=== PATIENT | female | born 1965 | race Caucasian/White ===

== ENCOUNTER 2020-07-13 13:32 | Outpatient (REF) | payer OTHER, SELFPAY ==
[2020-07-13 16:59] LABS: Estimated Average Glucose 283 mg/dL; Hemoglobin A1c % 11.5 %
[2020-07-13 17:09] LABS: Anion Gap 14 (12-20); Blood Urea Nitrogen 16 mg/dL (9-16); Calcium 9.4 mg/dL (8.4-10.2); Carbon Dioxide 30 mmol/L (22-29); Chloride 98 mmol/L (96-108); Estimated Glomerular Filt Rate 54; Glucose Random 256 mg/dL (60-115); Potassium 4.5 mmol/l (3.3-5.1); Sodium 137 mmol/L (135-145)
[2020-07-13 17:24] LABS: Creatinine Urine 33.06 mg/dL; Microalbum/Creatinine Ratio Ur 15.1 ug/mg cr
[2020-07-14 21:08] LABS: LDL Cholesterol Direct 145 mg/dL (<100)
== END 2020-07-13 13:33 | disposition home or self-care (01) ==
LOC: HO.HMGCLDS 13:32
PROVIDERS: PCP Internal Medicine; Visit Provider Internal Medicine
DX: E78.9 Disorder of lipoprotein metabolism, unspecified (principal); I10 Essential (primary) hypertension; K21.9 Gastro-esophageal reflux disease without esophagitis; E11.65 Type 2 diabetes mellitus with hyperglycemia; Z79.4 Long term (current) use of insulin
CPT/HCPCS: 80048; 82043; 83036; 83721

== ENCOUNTER → 2020-12-09 12:57 | Outpatient (BNVA) | payer OTHER, SELFPAY | PROVIDERS: PCP Internal Medicine; Visit Provider Nurse Practitioner Gerontology | DX: E11.65 Type 2 diabetes mellitus with hyperglycemia (principal); E78.5 Hyperlipidemia, unspecified; I10 Essential (primary) hypertension; Z79.4 Long term (current) use of insulin; Z71.3 Dietary counseling and surveillance | CPT/HCPCS: 82947; 99212 ==

== ENCOUNTER → 2021-04-07 07:39 | Outpatient (BNVA) | payer OTHER, SELFPAY | PROVIDERS: PCP Internal Medicine; Visit Provider Nurse Practitioner Gerontology ==

== ENCOUNTER → 2021-06-28 09:59 | Outpatient (BNVA) | payer OTHER, SELFPAY | PROVIDERS: PCP Internal Medicine; Visit Provider Nurse Practitioner Gerontology | DX: E11.65 Type 2 diabetes mellitus with hyperglycemia (principal); I10 Essential (primary) hypertension; E78.5 Hyperlipidemia, unspecified | CPT/HCPCS: 82947; 99212 ==

== ENCOUNTER → 2021-08-15 10:38 | Outpatient (BNVA) | payer OTHER, SELFPAY | PROVIDERS: PCP Internal Medicine; Visit Provider Nurse Practitioner Gerontology ==

== ENCOUNTER → 2021-10-10 12:35 | Outpatient (BNVA) | payer OTHER, SELFPAY | PROVIDERS: PCP Internal Medicine; Visit Provider Nurse Practitioner Gerontology ==

== ENCOUNTER → 2022-01-03 13:31 | Outpatient (BNVA) | payer OTHER, SELFPAY | PROVIDERS: PCP Internal Medicine; Visit Provider Nurse Practitioner Gerontology | DX: E11.65 Type 2 diabetes mellitus with hyperglycemia (principal); I10 Essential (primary) hypertension; E78.5 Hyperlipidemia, unspecified; E55.9 Vitamin D deficiency, unspecified; Z79.4 Long term (current) use of insulin | CPT/HCPCS: 82947; 83036; 99212 ==

== ENCOUNTER → 2022-01-18 15:22 | Outpatient (BNVA) | payer OTHER, SELFPAY | PROVIDERS: PCP Internal Medicine; Visit Provider Registered Nurse Diabetes Educator | DX: E11.65 Type 2 diabetes mellitus with hyperglycemia (principal) | CPT/HCPCS: 99211 ==

== ENCOUNTER 2022-05-12 09:13 | Outpatient (REF) | payer OTHER, SELFPAY ==
--- NOTE | ~2022-05-12 | XR_ITS ---
EXAMINATION: XR LUMBOSACRAL SPINE CLINICAL INFORMATION: Low back pain COMPARISON: 11/02/2017 TECHNIQUE: Three views of the lumbosacral spine. FINDINGS: There is minimal grade 1 retrolisthesis of L3 on L4. Alignment throughout the remainder of the lumbar spine is anatomic. Vertebral body heights are maintained. There is moderate to severe disc space narrowing at L3-L4 with surrounding degenerative endplate change. Mild scattered endplate osteophytes noted throughout the lumbar spine. Facet arthropathy is suspected in the lower lumbar spine. Calcifications are present along the aorta. XR/XR lumbar spine 2-3V IMPRESSION: No acute findings identified. Degenerative changes, most prominent at L3-L4.
[2022-05-12 11:48] LABS: MANUAL DIFF FLAG NO
[2022-05-12 12:01] LABS: Basophils Absolute Auto 0.1 X10*3/uL (0.0-0.2); Basophils Percent Auto 0.5 % (0-2); Eosinophils Absolute Auto 0.1 X10*3/uL (0.0-0.4); Eosinophils Percent Auto 0.9 % (0-4); Hematocrit 38.6 % (37.0-47.0); Hemoglobin 11.8 g/dl (12.0-16.0); Imm Gran Abs Auto 0.12 X10*3/uL (0.00-0.03); Imm Gran Pct Auto 1.1 % (0.0-0.4); Lymphocytes Absolute Auto 2.3 X10*3/uL (1.2-4.9); Lymphocytes Percent Auto 20.8 % (20-40); Mean Corpuscular HGB Conc 30.6 g/dl (31.0-35.0); Mean Corpuscular Hemoglobin 25.5 pg (27.0-33.0); Mean Corpuscular Volume 83.5 fL (80.0-98.0); Mean Platelet Volume 9.5 fL (9.4-12.3); Monocytes Absolute Auto 0.7 X10*3/uL (0.1-1.2); Monocytes Percent Auto 6.3 % (2-11); Neutrophils Absolute Auto 7.8 x10*3/uL (2.0-8.3); Neutrophils Percent Auto 70.4 % (45-73); Platelet Count 398 X10*3/uL (160-400); Red Blood Count 4.62 X10*6/uL (4.20-5.50); Red Cell Distribution Width 13.9 % (11.0-16.0); White Blood Count 11.1 X10*3/uL (4.8-10.8)
[2022-05-12 12:09] LABS: Estimated Average Glucose 183 mg/dL
[2022-05-12 12:37] LABS: Creatinine Urine 56.25 mg/dL; Microalbumin Urine < 5.0 mg/L
[2022-05-12 12:43] LABS: Alanine Aminotransferase 19 U/L (0-31); Albumin Level 4.3 g/dL (3.5-5.0); Alkaline Phosphatase 130 U/L (39-117); Anion Gap 24 (12-20); Aspartate Amino Transferase 21 U/L (5-31); Bilirubin Total 0.3 mg/dL (0.0-1.0); Blood Urea Nitrogen 44 mg/dL (9-16); Calcium 10.1 mg/dL (8.4-10.2); Carbon Dioxide 22 mmol/L (22-29); Chloride 96 mmol/L (96-108); Estimated Glomerular Filt Rate 29; Glucose Random 225 mg/dL (60-115); Potassium 5.1 mmol/L (3.3-5.1); Sodium 137 mmol/L (135-145)
[2022-05-14 21:07] LABS: LDL Cholesterol Direct 154 mg/dL (<100)
[2022-05-17 11:27] LABS: Vitamin D 25-OH, D2 6 ng/mL; Vitamin D 25-OH, D3 31 ng/mL; Vitamin D 25-OH, Total 37 ng/mL (30-100)
== END 2022-05-12 09:14 | disposition home or self-care (01) ==
LOC: HO.HMGCLDS 09:13
PROVIDERS: PCP Internal Medicine; Visit Provider Internal Medicine
DX: M54.50 Low back pain, unspecified (principal); E11.65 Type 2 diabetes mellitus with hyperglycemia; E55.9 Vitamin D deficiency, unspecified; E78.9 Disorder of lipoprotein metabolism, unspecified; I10 Essential (primary) hypertension; K21.9 Gastro-esophageal reflux disease without esophagitis; Z79.4 Long term (current) use of insulin
CPT/HCPCS: 36415; 72100; 80053; 82043; 82306; 83036; 83721; 85025

== ENCOUNTER → 2022-06-15 14:05 | Outpatient (BNVA) | payer OTHER, SELFPAY | PROVIDERS: PCP Internal Medicine; Visit Provider Internal Medicine Endocrinology, Diabetes & Metabolism | DX: E11.65 Type 2 diabetes mellitus with hyperglycemia (principal); Z79.4 Long term (current) use of insulin; Z79.84 Long term (current) use of oral hypoglycemic drugs | CPT/HCPCS: 82947; 99212 ==

== ENCOUNTER 2022-09-13 07:43 | Outpatient (REF) | payer OTHER, SELFPAY ==
[2022-09-13 08:27] LABS: Anion Gap 18 (12-20); Blood Urea Nitrogen 52 mg/dL (9-16); Carbon Dioxide 28 mmol/L (22-29); Chloride 99 mmol/L (96-108); Cholesterol 309 mg/dL; Estimated Glomerular Filt Rate 23; Glucose Random 204 mg/dL (60-115); HDL Cholesterol 38 mg/dL; Potassium 4.1 mmol/L (3.3-5.1); Sodium 141 mmol/L (135-145); Triglycerides 484 mg/dL
== END 2022-09-13 07:44 | disposition home or self-care (01) ==
LOC: HO.LAB 07:43
PROVIDERS: PCP Internal Medicine; Visit Provider Internal Medicine Endocrinology, Diabetes & Metabolism
DX: E11.65 Type 2 diabetes mellitus with hyperglycemia (principal)
CPT/HCPCS: 36415; 80048; 80061

== ENCOUNTER → 2022-09-14 13:19 | Outpatient (BNVA) | payer OTHER, SELFPAY | PROVIDERS: PCP Internal Medicine; Visit Provider Internal Medicine Endocrinology, Diabetes & Metabolism | DX: E11.65 Type 2 diabetes mellitus with hyperglycemia (principal); I10 Essential (primary) hypertension; E78.5 Hyperlipidemia, unspecified; F11.20 Opioid dependence, uncomplicated; Z79.4 Long term (current) use of insulin | CPT/HCPCS: 82947; 83036; 99212 ==

== ENCOUNTER → 2022-11-16 14:53 | Outpatient (BNVA) | payer OTHER, SELFPAY | PROVIDERS: PCP Internal Medicine; Visit Provider Internal Medicine Endocrinology, Diabetes & Metabolism | DX: E11.65 Type 2 diabetes mellitus with hyperglycemia (principal) | CPT/HCPCS: 82947; 99212 ==

== ENCOUNTER 2022-12-04 10:16 | Outpatient (REF) | payer OTHER, SELFPAY ==
[2022-12-04 12:36] LABS: Thyroid Stimulating Hormone 4.64 uIU/mL (0.32-4.0)
== END 2022-12-04 10:17 | disposition home or self-care (01) ==
LOC: HO.HMGCLDS 10:16
PROVIDERS: PCP Internal Medicine; Visit Provider Internal Medicine Endocrinology, Diabetes & Metabolism
DX: E11.65 Type 2 diabetes mellitus with hyperglycemia (principal)
CPT/HCPCS: 36415; 84439; 84443

== ENCOUNTER 2022-12-15 10:22 | Outpatient (REF) | payer OTHER, SELFPAY ==
[2022-12-15 12:25] LABS: Free T4 (Free Thyroxine) 0.87 ng/dL (0.71-1.85); Thyroid Stimulating Hormone 5.04 uIU/mL (0.32-4.0)
[2022-12-19 05:14] LABS: Thyroid Peroxidase Antibodies 679 IU/mL (<9)
== END 2022-12-15 10:23 | disposition home or self-care (01) ==
LOC: HO.HMGCLDS 10:22
PROVIDERS: PCP Internal Medicine; Visit Provider Internal Medicine Endocrinology, Diabetes & Metabolism
DX: R79.89 Other specified abnormal findings of blood chemistry (principal)
CPT/HCPCS: 36415; 84439; 84443; 86376

== ENCOUNTER 2023-04-03 13:33 | Outpatient (AMB) | payer OTHER, SELFPAY ==
[2023-04-03 13:46] VITALS: BMI 35.8
--- NOTE | 2023-04-03 13:46 | A.OFFVIS_ITS ---
Intake VS Expanded 04/03/23 13:46 04/17/23 20:08 Height 5 ft 4 in 5 ft 4 in Weight 208 lb 5.389 oz 208 lb BMI 35.8 35.7 Intake Visit Reasons: DM Allergies No Known Allergies [No Known Allergies*] Allergy (Verified 04/04/23 14:19) HPI Nutrition Presentation Details Pt presents for MNT for T2DM. Pt sees Dr. Clark, farm technician. Pt reports having hx of SVT, methadone dependence who prepares meals: self , daughter . Pt reports living with daughter and grandchildren Brought glucometer : BG average at 201 mg/dl, 33% within limits, 50% above 180 mg/dl, 17% above 240 mg/dl Pt on lispro on SS, Tresiba ,Trulicity Pt has appt with Dr. Clark, farm technician tomorrow Pt reports eating one meal a day meal at 2-3pm : protein (chicken mainly) rice , vegetables (peas , green beans corn), unsweetened tea snack : milk, cereal food frequency fish : not including, poultry 4-5 oz serving/d fruits: 0-1/d dairy : 3+ serving /d starches and starchy veg : rice/pasta /corn/peas non starchy ve-1/d beverages:water, diet sodas, juices physical activity: daily life activities ETOh: abstaining Smoking: abstaining YXJ-Xdqldbb-Br.Jeor Equation Height 5 ft 4 in Weight 208 lb Resting Metabolic Rate 1522.01 Calculated Activity Level Sedentary Calories Needed to Maintain Weight 1826.41 Diagnosis Nutrition problem #1 food nutri know defi As related to (etiology) #1 diagnosis As evidenced by (sign/symptom) #1 knowledge deficit of diet Monitoring/Goals0 Nutrition problem monitoring HgbA1c, level of knowledge/skill, total PRO intake and total CHO intake Nutrition goal/outcome list 3 CHO foods Learning/Education Readiness to learn good Educational materials provided Yes (meal planning, reducing carbs) Most Recent Diabetes Results: Cholesterol 309 mg/dL 09/13/22 HDL Cholesterol 38 mg/dL 09/13/22 Triglycerides 484 mg/dL 09/13/22 Creatinine 2.18 mg/dL (0.5-1.4) H 09/13/22 Blood Urea Nitrogen 52 mg/dL (9-16) H 09/13/22 Sodium 141 mmol/L (135-145) 09/13/22 Potassium 4.1 mmol/L (3.3-5.1) 09/13/22 Chloride 99 mmol/L (96-108) 09/13/22 Carbon Dioxide 28 mmol/L (22-29) 09/13/22 Calcium 10.0 mg/dL (8.4-10.2) 09/13/22 [facility] Medical History (Updated 04/04/23 @ 14:29 by Jose Clark MD) Chronic GERD Hyperlipidemia LDL goal <100 Hypertension, essential Hypothyroidism Lipid disorder 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 Daughter No problems noted. Social History Household Members: Family Housing: Other Alcohol intake: never Patient Tobacco Use Status: Former Tobacco user (2 years ago ) Tobacco use type: Cigarette Years Smoked: 25 years e-Cigarette/Vaping Use: Currently Using Current occupational status: disabled Cognitive needs: No Hearing needs: No Vision needs: Yes Assessment & Plan Assessment & Plan (1) Type 2 diabetes mellitus with hyperglycemia: Code(s): E11.65 - Type 2 diabetes mellitus with hyperglycemia Plan: Wt (03/2023): 95kg Est kcal needs as per MSJ: 1800 (40% carb, 30% protein/fat) Est fluid needs as per 25-30 ml/d: 2400- 2900 Est prot per day as per 1 g/kg bw: 95 Recommend fiber intake : 8-10 g per day and gradually increase to 25-28 g per day for women and 35-38 g for men or as tolerated Recommend sodium intake per day : less than 2000 mg Educated patient on: ( R = reviewed V = verbalizes understanding N/R = needs review N/A = not applicable * Food sources of carbohydrate, adequate serving sizes and its role in various health conditions: R * Differences between complex carbohydrates a simple carbohydrates, role of fiber in diet: R * Differences between types of fats and role in diet (mono on saturated fat fatty acids, saturated fatty acids, trans fats): N R * Food sources of sodium in salt and healthy modifications for heart health in kidney health: NR * Vitamins and minerals: NR * Healthy plate method concept: R * Physical activity: Benefits a precaution: R * Hypoglycemia protocol (rule of 15): NR * Dietary prevention of Hyperglycemia: R Patient Instructions: Have 2 balanced meals per day following healthy plate method Choose lower sugar snacks, see 1800 mireya meal plan ideas Coding Level of Care Code Nutr Indiv Intake (59002) Diagnoses Type 2 diabetes mellitus with hyperglycemia E11.65 Time Spent (min) 30
[2023-04-17 20:08] VITALS: BMI 35.7
== END 2023-04-03 14:10 | disposition home or self-care (01) ==
PROVIDERS: PCP Internal Medicine; Visit Provider Dietitian, Registered
DX: E11.65 Type 2 diabetes mellitus with hyperglycemia (principal)

== ENCOUNTER → 2023-04-03 13:33 | Outpatient (BNVA) | payer OTHER, SELFPAY | PROVIDERS: Visit Provider Dietitian, Registered | DX: E11.65 Type 2 diabetes mellitus with hyperglycemia (principal) | CPT/HCPCS: 97802 ==

== ENCOUNTER 2023-04-04 14:02 | Outpatient (AMB) | payer OTHER, SELFPAY ==
[2023-04-04 14:11] VITALS: BP 166/86; PULSE 99; BMI 36.6
--- NOTE | 2023-04-04 14:11 | A.OFFVIS_ITS ---
Intake Vital Signs 04/04/23 14:11 Height 5 ft 4 in Weight 212 lb 15.465 oz BMI 36.6 BP 166/86 H Blood Pressure Location Lt brachial Position Sitting Pulse 99 Pulse Source Pulse Oximeter Intake Visit Reasons: DM Intake Note: Patient present today to follow up on Type 2 Diabetes Mellitus. Patient receives DME supplies through: Pharmacy Last Diabetic Eye exam: About 2 years ago Last Podiatry Visit: Over 2 years Random Glucose:171 mg/dl HgA1C: 9.2% Retail Sales Merchandiser Required: No Accompanied by: self Allergies No Known Allergies [No Known Allergies*] Allergy (Verified 04/04/23 14:19) HPI HPI Comments History of Present Illness Details Patient is a 57-year-old female with DM type 2 who presents for management of diabetes. Past medical history: DM2, HTN, HLD, methadone Micro and macrovascular complications:neuropathy Diabetes medications: - -Trulicity 3 mg/dl -Jardiance 10 mg -Tresiba 120 units -Humalog 14 small meals, 16 medium meals and 18 large meals TiD (is using 24 units for most meals) ? ? + 2 unit bg>200 ? ? + 4 unit bg> 250 ? ? + 6 unit bg>300 Kera download shows she is using the sensor 68 % of the time for average glucose is 194 with G mi of 8%. 40 % in target range with % hyperglycemia and no hypoglycemia. Patent shows persistent hyperglycemia throughout the day with rise in blood sugar overnight Hypoglycemia: denies frequebt episodes Hyperglycemia: + urinary frequency, denies nocturia, + polydypsia Exercise: lives on 4th floor, limited due to injury in foot Reimbursement Liaison - CDE education: denies Last dental exam: dentures Last ophthalmology evaluation:needs to make appt Laboratory Tests 06/22/21 15:15 Hgb A1c (Clinic) > 14 H* Had an episode of SVT PFSH Medical History (Updated 04/04/23 @ 14:29 by Jose Clark MD) Chronic GERD Hyperlipidemia LDL goal <100 Hypertension, essential Hypothyroidism Lipid disorder half-way (current) use of insulin Methadone dependence Type 2 diabetes mellitus with hyperglycemia Uncontrolled diabetes mellitus Vitamin D deficiency Surgical History History of elbow surgery Hx of cholecystectomy Hx of mammogram Family History Father Diabetes Mother Diabetes Brother Diabetes Brother No problems noted. Daughter No problems noted. Social History Household Members: Family Housing: Other Alcohol intake: never Patient Tobacco Use Status: Former Tobacco user (2 years ago ) Tobacco use type: Cigarette Years Smoked: 25 years e-Cigarette/Vaping Use: Currently Using Current occupational status: disabled Cognitive needs: No Hearing needs: No Vision needs: Yes Physical Exam Vital Signs: Last Vital Signs Pulse 99 04/04/23 14:11 BP 166/86 H 04/04/23 14:11 BMI result Body Mass Index 36.6 Absence of Cushingoid features. Absence of acromegalic features. Neck exam reveals nl size thyroid about 15 gms. No thyroid nodules palpable. No carotid bruits present. Lungs CTA. Heart S1 S2, Reg R/R. No M/R/ G. Skin exam reveals absence of vitiligo or acanthosis nigricans. Abdominal exam reveals Soft NT/ND with NA BS. No organomegaly present. Neck Other: . Extrem Other: Visual exam of foot performed. No ulcerations or open lesions. No onchomycosis, no callouses.Pulses 2 + distally Sensation decreased to monofilament exam. Vibratory sensation sensed is decreased with 128 Hz tuning fork Results AMB Hemoglobin A1c AMB Hemoglobin A1c 9.2 % Last Edit by Abigail Thomas on 04/04/23 14:47 Results Reviewed Results Reviewed: 04/04/23 14:24 Glucose, Whole Blood Routine Laboratory Last Values Glucose (Clinic) 171 mg/dL (60-115) H 04/04/23 14:24 Hgb A1c (Clinic) 9.2 % (4.0-6.0) H 04/04/23 14:31 Assessment & Plan Assessment & Plan (1) Uncontrolled diabetes mellitus: Code(s): E11.65 - Type 2 diabetes mellitus with hyperglycemia Plan: This is a 57-year-old white female with a history of type 2 diabetes being treated with metformin, Jardiance, Trulicity and basal-bolus insulin with poor deteriorated glycemic control but worsening kidney function to CKD stage 4. The plan is to talk to patient about switching Trulicity to Mounjaro . Will start Mounjaro 2.5 mg qwkly and titrate if tolerated. Went over side effects of Mounjaro including but not limited to nausea, vomiting risk pancreatitis. Will also recheck basic metabolic panel in 6 weeks time if kidney function is stable, may increase Jardiance 25 mg. Will have patient follow up with clinical document improvement educator and consider switching patient to U-500 insulin if Mounjaro is not tolerated or does not bring patient to goal. 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 Will start levothyroxine 50 mcg q.d. recheck TSH and free T4 in 6 weeks and titrate gently levothyroxine Orders: Orders Free T4 (Free Thyroxine) 6 Weeks E03.9 - Hypothyroidism, unspecified Thyroid Stimulating Hormone 6 Weeks E03.9 - Hypothyroidism, unspecified Basic Metabolic Panel 6 Weeks E11.65 - Type 2 diabetes mellitus with hyperglycemia AMB Hemoglobin A1c Today E11.65 - Type 2 diabetes mellitus with hyperglycemia Medications: New levothyroxine 50 mcg PO DAILY 30 tabs 4RF empagliflozin (Jardiance) 10 mg PO DAILY 30 tabs 4RF Discontinued empagliflozin (Jardiance) Discontinued Reason: Doctor's Order 10 mg PO QAM 30 tabs 2RF Coding Level of Care Code Est Pt Level 4 (53763) Diagnoses Uncontrolled diabetes mellitus E11.65 Hypothyroidism E03.9
[2023-04-04 14:29] LABS: Glucose, Whole Blood 171 mg/dL (60-115)
== END 2023-04-04 14:57 | disposition home or self-care (01) ==
PROVIDERS: PCP Internal Medicine; Referring Provider Internal Medicine; Visit Provider Internal Medicine Endocrinology, Diabetes & Metabolism
DX: E11.65 Type 2 diabetes mellitus with hyperglycemia (principal); E03.9 Hypothyroidism, unspecified
CPT/HCPCS: 99214

== ENCOUNTER → 2023-04-04 14:02 | Outpatient (BNVA) | payer OTHER, SELFPAY | PROVIDERS: Visit Provider Internal Medicine Endocrinology, Diabetes & Metabolism | DX: E11.65 Type 2 diabetes mellitus with hyperglycemia (principal); E11.22 Type 2 diabetes mellitus with diabetic chronic kidney disease; N18.4 Chronic kidney disease, stage 4 (severe); E03.9 Hypothyroidism, unspecified; Z79.4 Long term (current) use of insulin | CPT/HCPCS: 82947; 83036; 99212 ==

== ENCOUNTER 2023-07-11 13:25 | Outpatient (AMB) | payer OTHER, SELFPAY ==
--- NOTE | 2023-07-11 13:35 | A.OFFPC_ITS ---
Vital Signs 07/11/23 13:36 Height 5 ft 4 in Weight 201 lb 6 oz BMI 34.6 BP 126/52 L Blood Pressure Location Rt brachial Position Sitting Pulse 100 Pulse Source Pulse Oximeter Pulse Oximetry (%) 96 Oxygen Delivery Method Room Air Intake Visit Reasons: discuss BP, Labs No showed January App Allergies No Known Allergies [No Known Allergies*] Allergy (Verified 07/11/23 13:36) Medication List - Last Reconciled 07/11/23 by Cal Aguillon MD aspirin (Adult Low Dose Aspirin) 81 mg PO DAILY atorvastatin 80 mg PO BEDTIME blood sugar diagnostic (FreeStyle Lite Strips) test blood sugar twice a day blood-glucose meter (FreeStyle Lite Meter kit) test four times a day cholecalciferol (vitamin D3) 25 mcg PO DAILY 90 days empagliflozin (Jardiance) 10 mg PO DAILY flash glucose scanning reader (N2N CommerceStyle Kera 2 [place]) As directed flash glucose sensor (FreeStyle Kera 2 Sensor kit) As directed every 2 weeks insulin degludec (Tresiba FlexTouch U-100 insulin) 60 units (0.6 mL) subcut BEDTIME insulin lispro 14 - 26 units (0.14 - 0.26 mL) subcut TID lancets (FreeStyle Lancets) use to check blood sugar twice a day lancets (TRUEplus Lancets) 4 times a day levothyroxine 50 mcg PO DAILY metoprolol succinate ER 50 mg PO DAILY omeprazole 40 mg PO DAILY pen needle, diabetic (BD Pamela 2nd Gen Pen Needle) As directed 4 times a day tirzepatide (Mounjaro) 2.5 mg (0.5 mL) subcut QWEEK Tobacco use date assessed: 07/11/23 Dental Screening Dental Screen Date: 07/11/23 Did you have a dental visit in the last 12 months?: Yes Did you have a dental problem in the last 6 months where you did not have access to dental care?: No Was dental information given to patient?: Patient has dentist HPI discuss BP, Labs No showed January HPI Details Patient is a 57-year-old female came in today for physical examination Patient have a history of hypothyroidism, diabetes, lipid disorder All of that is being managed by endocrinology [facility] Dr. Clark Patient also sees road machinery inspector for her blood pressure and kidneys There is no medication from PCP office other than vitamin-D which I have filled for the whole year Patient have a history of psoriasis and she is in need of Dermatology referral. 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 Daughter No problems noted. Social History Household Members: Family Housing: Other Alcohol intake: never Patient Tobacco Use Status: Former Tobacco user (2 years ago ) Tobacco use type: Cigarette Years Smoked: 25 years e-Cigarette/Vaping Use: Currently Using service: No Current occupational status: disabled Cognitive needs: No Hearing needs: No Vision needs: Yes Questionnaire PHQ-9 Over the last 2 weeks, how often have you been bothered by any of the following problems? 1. Little interest or pleasure in doing things: several days 2. Feeling down, depressed, or hopeless: several days 3. Trouble falling or staying asleep, or sleeping too much: several days 4. Feeling tired or having little energy: not at all 5. Poor appetite or overeating: not at all 6. Feeling bad about yourself - or that you are a failure or have let yourself or your family down: not at all 7. Trouble concentrating on things, such as reading the newspaper or watching television: several days 8. Moving or speaking so slowly that other people could have noticed. Or the opposite - being so fidgety or restless that you have been moving around a lot more than usual: not at all 9. Thoughts that you would be better off or of hurting yourself in some way: not at all Total score: 4 Depression Screening Interpretation: Negative Depression Screening Done: Yes 69542 - PHQ-9 Billing: Yes Source: Developed by Drs. Jose Morin, Shasha Calixto, Pedro Bryan and colleagues, with an educational ciara from [employer]. Thrive Questionnaire Date Thrive assessed: 05/12/22 DURGA-7 AMB Questionnaire DURGA-7 Date DURGA - 7 assessed: 05/12/22 Source: Developed by Drs. Jose Morin, Shasha Calixto, Pedro Bryan and colleagues, with an educational ciara from [employer]. Review of Systems Const Denies chills, Denies fever(s) and Denies headache(s) Eyes Denies blurry vision ENT Denies headache(s), Denies nasal discharge, Denies nasal obstruction, Denies odynophagia and Denies sinus pain Card Denies chest pain at rest and Denies chest pain with activity Resp Denies cough and Denies hemoptysis GI Denies diarrhea, Denies odynophagia, Denies vomiting and Denies hematemesis Reports as per HPI Skin/Breast Reports as per HPI Neuro Denies Neuro-related abnormal movements, Denies Abnormal speech present and Denies headache(s) Psych Denies mood swings and Denies paranoia Endo Reports as per HPI Silverio/Lymph Reports as per HPI Aller/Immun Reports as per HPI Physical exam (Primary Care) Vital Signs: Last Vital Signs Pulse 100 07/11/23 13:36 BP 126/52 L 07/11/23 13:36 Pulse Ox 96 07/11/23 13:36 Oxygen Delivery Method Room Air 07/11/23 13:36 BMI result Body Mass Index 34.6 Tobacco/Smoking Status: Tobacco use Status Tobacco use date assessed 07/11/23 07/11/23 13:38 Patient Tobacco Use Status Former Tobacco user (2 years 07/11/23 13:38 ago ) Tobacco use type Cigarette 07/11/23 13:38 e-Cigarette/Vaping Use Currently Using 07/11/23 13:38 Depression Screening Interpretation: Negative Thrive Assessment: Date of Thrive Assessment Date Thrive assessed 05/12/22 07/11/23 13:38 Const General: cooperative, comfortable and no acute distress Orientation/consciousness: patient oriented x3 HENMT Head: Yes normocephalic and Yes atraumatic Eyes General: appearance normal, both eyes and all related structures Pupils: Equal, round and reactive pupils present EOM: EOMs intact bilaterally Neck Neck: Yes supple and No lymphadenopathy Thyroid: Thyroid normal Lymphatic: no lymphadenopathy noted Chest Breast/axilla palpation: normal palpation of the breasts Resp Effort & Inspection: normal respiratory effort and able to speak in complete sentences Auscultation: clear to auscultation bilaterally Cardio Heart sounds: S1 normal heart sound present and S2 normal heart sound present GI Palpation (GI): Soft to palpation and nontender Auscultation: normal bowel sounds General: Yes no CVA tenderness Back/Spine/Pelvis Back: no CVA tenderness Skin General skin exam: elasticity normal and turgor normal Neuro General: patient oriented x3 Cranial nerves: Yes Equal, round and reactive pupils present Speech: No Abnormal speech present Extrem General: Yes normal exam except as noted and No edema Assessment and Plan Assessment & Plan (1) Encounter for general adult medical examination with abnormal findings: Code(s): Z00.01 - Encounter for general adult medical examination with abnormal findings (2) Diabetes mellitus type 2 in obese: Code(s): E11.69 - Type 2 diabetes mellitus with other specified complication; E66.9 - Obesity, unspecified (3) Diabetic nephropathy: Code(s): E11.21 - Type 2 diabetes mellitus with diabetic nephropathy Qualifiers: Diabetes mellitus type: type 2 Qualified Code(s): E11.21 - Type 2 diabetes mellitus with diabetic nephropathy (4) snf (current) use of insulin: Code(s): Z79.4 - assistant terminal manager (current) use of insulin (5) Vitamin D deficiency: Code(s): E55.9 - Vitamin D deficiency, unspecified (6) Lipid disorder: Code(s): E78.9 - Disorder of lipoprotein metabolism, unspecified (7) Hypertension, essential: Code(s): I10 - Essential (primary) hypertension (8) Obesity due to excess calories: Code(s): E66.09 - Other obesity due to excess calories Qualifiers: Body mass index: BMI 34.0-34.9 Obesity classification: adult class 1 (BMI 30 - 34.9) Serious obesity comorbidity presence: with serious comorbidity Qualified Code(s): E66.09 - Other obesity due to excess calories; Z68.34 - Body mass index [BMI] 34.0-34.9, adult (9) Psoriasis: Code(s): L40.9 - Psoriasis, unspecified (10) Seborrheic dermatitis: Code(s): L21.9 - Seborrheic dermatitis, unspecified (11) Hypothyroidism: Code(s): E03.9 - Hypothyroidism, unspecified Qualifiers: Hypothyroidism type: unspecified Qualified Code(s): E03.9 - Hypothyroidism, unspecified (12) Chronic GERD: Code(s): K21.9 - Gastro-esophageal reflux disease without esophagitis (13) Colon cancer screening: Code(s): Z12.11 - Encounter for screening for malignant neoplasm of colon Plan Patient is a 57-year-old female came in today for physical examination Patient have a history of hypothyroidism, diabetes, lipid disorder All of that is being managed by endocrinology [facility] Dr. Clark Patient also sees road machinery inspector for her blood pressure and kidneys There is no medication from PCP office other than vitamin-D which I have filled for the whole year Patient have a history of psoriasis and she is in need of Dermatology referral. Colonoscopies due order placed Mammogram is due order placed Pap smear is due referral to OBGYN placed BMI is elevated patient need to lose weight Follow-up 1 year for physical exam Orders: Orders MM tomosynthesis screening BI Today Z12.31 - Encounter for screening mammogram for malignant neoplasm of breast Referrals Dermatology Referral L40.9 - Psoriasis, unspecified Gastroenterology Referral Z12.11 - Encounter for screening for malignant neoplasm of colon MEDICAL OBSERVER Referral Z01.419 - Encounter for gynecological examination (general) (routine) without abnormal findings Medications: Refilled cholecalciferol (vitamin D3) 25 mcg PO DAILY 90 caps 3RF 90 days Coding Level of Care Code Est Pt Prev Care 40-64y(53104) Diagnoses Encounter for general adult medical examination with abnormal findings Z00.01 Diabetes mellitus type 2 in obese E11.69; E66.9 Diabetic nephropathy associated with type 2 diabetes mellitus E11.21 Diabetes mellitus type: type 2 snf (current) use of insulin Z79.4 Vitamin D deficiency E55.9 Lipid disorder E78.9 Hypertension, essential I10 Class 1 obesity due to excess calories with serious comorbidity and body mass index (BMI) of 34.0 to 34.9 in adult E66.09; Z68.34 Body mass index: BMI 34.0-34.9 Obesity classification: adult class 1 (BMI 30 - 34.9) Serious obesity comorbidity presence: with serious comorbidity Psoriasis L40.9 Seborrheic dermatitis L21.9 Hypothyroidism, unspecified type E03.9 Hypothyroidism type: unspecified Chronic GERD K21.9 Colon cancer screening Z12.11
[2023-07-11 13:36] VITALS: BP 126/52; PULSE 100; O2SAT 96; BMI 34.6
== END 2023-07-11 14:35 | disposition home or self-care (01) ==
PROVIDERS: PCP Internal Medicine; Visit Provider Internal Medicine
DX: Z00.00 Encounter for general adult medical examination without abnormal findings (principal); E11.69 Type 2 diabetes mellitus with other specified complication; E11.21 Type 2 diabetes mellitus with diabetic nephropathy; Z79.4 Long term (current) use of insulin; E66.09 Other obesity due to excess calories; Z68.34 Body mass index [BMI] 34.0-34.9, adult; E55.9 Vitamin D deficiency, unspecified; E78.9 Disorder of lipoprotein metabolism, unspecified; I10 Essential (primary) hypertension; L40.9 Psoriasis, unspecified; L21.9 Seborrheic dermatitis, unspecified
CPT/HCPCS: 99396

== ENCOUNTER 2023-10-09 09:06 | Outpatient (REF) | payer OTHER, SELFPAY ==
[2023-10-09 14:20] LABS: Creatinine Urine 46.73 mg/dL; Microalbumin Urine < 5.0 mg/L
[2023-10-09 15:56] LABS: Anion Gap 12 (12-20); Blood Urea Nitrogen 27 mg/dL (9-16); Calcium 9.6 mg/dL (8.4-10.2); Carbon Dioxide 29 mmol/L (22-29); Chloride 96 mmol/L (96-108); Cholesterol 241 mg/dL (<200); Estimated Glomerular Filt Rate 47; Glucose Fasting 330 mg/dL (60-99); HDL Cholesterol 43 mg/dL (>40); Potassium 4.5 mmol/L (3.3-5.1); Sodium 132 mmol/L (135-145); Triglycerides 488 mg/dL (<150)
[2023-10-09 16:11] LABS: Free T4 (Free Thyroxine) 1.11 ng/dL (0.71-1.85)
== END 2023-10-09 09:07 | disposition home or self-care (01) ==
LOC: HO.HKASLDS 09:06
PROVIDERS: Visit Provider Internal Medicine Endocrinology, Diabetes & Metabolism
DX: E11.65 Type 2 diabetes mellitus with hyperglycemia (principal); E03.9 Hypothyroidism, unspecified
CPT/HCPCS: 36415; 80048; 80061; 82043; 82570; 84439; 84443

== ENCOUNTER 2023-10-10 14:26 | Outpatient (AMB) | payer OTHER, SELFPAY ==
[2023-10-10 14:28] VITALS: BP 122/64; PULSE 92; BMI 33.4
--- NOTE | 2023-10-10 14:28 | A.OFFVIS_ITS ---
Intake Vital Signs 10/10/23 14:28 Height 5 ft 4 in Weight 194 lb 7.163 oz BMI 33.4 BP 122/64 Blood Pressure Location Lt brachial Position Sitting Pulse 92 Pulse Source Pulse Oximeter Intake Visit Reasons: DM-lvm Intake Note: Patient presents today to follow up on D2MT. Last Diabetic Eye exam: Over 2 years ago Last Podiatry Visit: 06/2023 Random Glucose: 262 mg/dl HgA1c: 11.7% Health And Wellness Instructor Required: No Accompanied by: Self / Same As Patient Allergies No Known Allergies [No Known Allergies*] Allergy (Verified 10/10/23 14:41) HPI HPI Comments History of Present Illness Details Patient is a 57-year-old female with DM type 2 who presents for management of diabetes. Past medical history: DM2, HTN, HLD, methadone Micro and macrovascular complications:neuropathy Diabetes medications: - -Mounjaro 2.5 mg Qwkly -Jardiance 10 mg -Tresiba 70 units -Humalog 14 small meals, 16 medium meals and 18 large meals TiD (is using 24 units for most meals) ? ? + 2 unit bg>200 ? ? + 4 unit bg> 250 ? ? + 6 unit bg>300 Kera download shows she is using the sensor 38 % of the time for average glucose is 267 with . 8 % in target range with 92% hyperglycemia and no hypoglycemia. 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 Daughter No problems noted. Social History Household Members: Family Housing: Other Alcohol intake: never Patient Tobacco Use Status: Former Tobacco user (2 years ago ) Tobacco use type: Cigarette Years Smoked: 25 years e-Cigarette/Vaping Use: Currently Using service: No Current occupational status: disabled Cognitive needs: No Hearing needs: No Vision needs: Yes Physical Exam Vital Signs: Last Vital Signs Pulse 92 10/10/23 14:28 BP 122/64 10/10/23 14:28 BMI result Body Mass Index 33.4 Absence of Cushingoid features. Absence of acromegalic features. Neck exam reveals nl size thyroid about 15 gms. No thyroid nodules palpable. No carotid bruits present. Lungs CTA. Heart S1 S2, Reg R/R. No M/R/ G. Skin exam reveals absence of vitiligo or acanthosis nigricans. Abdominal exam reveals Soft NT/ND with NA BS. No organomegaly present. Neck Other: . Extrem Other: Visual exam of foot performed. No ulcerations or open lesions. No onchomycosis, no callouses.Pulses 2 + distally Sensation decreased to monofilament exam. Vibratory sensation sensed is decreased with 128 Hz tuning fork Results AMB Hemoglobin A1c AMB Hemoglobin A1c 11.7 % Last Edit by RED Funez on 10/10/23 14:47 Assessment & Plan Assessment & Plan (1) Uncontrolled diabetes mellitus: Code(s): E11.65 - Type 2 diabetes mellitus with hyperglycemia Plan: This is a 57-year-old white female with a history of type 2 diabetes being treated with metformin, Jardiance, Trulicity and basal-bolus insulin with poor deteriorated glycemic control but worsening kidney function to CKD stage 4. The plan is to increase the Tresiba to 100 units and then by 10 units to get morning fasting glucose <150. Patient appears to be very insulin resistant and may benefit from either U-500 insulin or an insulin pump initiation. She is going to meet with the vial gauger to discuss this . 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 Clinically and biochemically euthyroid on 50 mcg levothyroxine Plan is to continue the current regimen. At this point in terms of the thyroid, patient returned to the care of her primary care provider who can manage thyroid returned back to endocrinology as needed Orders: Orders AMB Hemoglobin A1c Today E11.69 - Type 2 diabetes mellitus with other specified complication, E66.9 - Obesity, unspecified, Z13.9 - Encounter for screening, unspecified Referrals Ophthalmology Referral E11.65 - Type 2 diabetes mellitus with hyperglycemia Medications: New tirzepatide (Mounjaro) 5 mg (0.5 mL) subcut QWEEK 2 mL 4RF Refilled atorvastatin 80 mg PO BEDTIME 30 tabs 4RF Discontinued tirzepatide (Mounjaro) Discontinued Reason: Doctor's Order 2.5 mg (0.5 mL) subcut QWEEK 2 mL 2RF E11.65 - Type 2 diabetes mellitus with hyperglycemia Coding Level of Care Code Est Pt Level 4 (42059) Diagnoses Uncontrolled diabetes mellitus E11.65 Hypothyroidism, unspecified type E03.9 Hypothyroidism type: unspecified
[2023-10-10 14:41] LABS: Glucose, Whole Blood 262 mg/dL (60-115)
== END 2023-10-10 14:58 | disposition home or self-care (01) ==
PROVIDERS: PCP Internal Medicine; Visit Provider Internal Medicine Endocrinology, Diabetes & Metabolism
DX: E11.69 Type 2 diabetes mellitus with other specified complication (principal); E11.65 Type 2 diabetes mellitus with hyperglycemia; E03.9 Hypothyroidism, unspecified; E66.9 Obesity, unspecified
CPT/HCPCS: 99214

== ENCOUNTER → 2023-10-10 14:26 | Outpatient (BNVA) | payer OTHER, SELFPAY | PROVIDERS: PCP Internal Medicine; Visit Provider Internal Medicine Endocrinology, Diabetes & Metabolism | DX: E11.65 Type 2 diabetes mellitus with hyperglycemia (principal); E03.9 Hypothyroidism, unspecified | CPT/HCPCS: 82947; 83036; 99212 ==

== ENCOUNTER 2024-02-13 15:13 | Outpatient (AMB) | payer OTHER, SELFPAY ==
--- NOTE | 2024-02-13 15:16 | A.OFFVIS_ITS ---
Vital Signs 02/13/24 15:21 Height 5 ft 4 in Weight 189 lb 9.561 oz BMI 32.5 BP 124/76 Blood Pressure Location Lt brachial Position Sitting Pulse 101 H Pulse Source Pulse Oximeter Intake Visit Reasons: f/u [id number] Intake Note: New Patient presents today to established treatment for Diabetes Type 2: Last Diabetic Eye Exam: DUE Last Podiatry Exam- Does not see a Soda Dispenser Random Glucose- 186 mg/dL, Today Most recent HbA1c- 9.2%, 02/13/2024 Hospital Admitting Clerk Required: No Accompanied by: Self / Same As Patient Allergies No Known Allergies [No Known Allergies*] Allergy (Verified 02/13/24 15:18) HPI Comments Details: Patient is a 58-year-old female with DM type 2 who presents for management of diabetes. Past medical history: DM2, HTN, HLD, methadone Micro and macrovascular complications:neuropathy Diabetes medications: -Mounjaro 5 mg Qwkly -Jardiance 10 mg -Tresiba 100 units -Humalog 14 small meals, 16 medium meals and 18 large meals TiD (is using 24 units for most meals) ? ? + 2 unit bg>200 ? ? + 4 unit bg> 250 ? ? + 6 unit bg>300 She has not been using the short acting insulin as she has had increased lows Kera download shows 89% in target, 7% lows. These are symptomatic. GMI 6.0%. 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 NAD EYES: EOMI. Anicteric. HENT: Moist mucous membranes. No scleral icterus. No cervical lymphadenopathy. LUNGS: Clear to auscultation bilaterally. CARDIOVASCULAR: Regular rate and rhythm. No murmur. No JVD. ABDOMEN: Soft, non-tender +bs EXTREMITIES: No edema. Non-tender. SKIN: No rashes or lesions. Warm. NEUROLOGIC: No focal neurological deficits. CN II-XII grossly intact PSYCHIATRIC: Cooperative. 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 Daughter No problems noted. Social History Household Members: Family Housing: Other Alcohol intake: never Patient Tobacco Use Status: Former Tobacco user Tobacco use type: Cigarette Years Smoked: 25 years e-Cigarette/Vaping Use: Currently Using service: No Current occupational status: disabled Cognitive needs: No Hearing needs: No Vision needs: Yes Physical Exam Vital Signs: Last Vital Signs Pulse 101 H 02/13/24 15:21 BP 124/76 02/13/24 15:21 BMI result Body Mass Index 32.5 Results AMB Hemoglobin A1c AMB Hemoglobin A1c 9.2 % Last Edit by RED Caldwell on 02/13/24 15:42 Results Reviewed Results Reviewed: Laboratory Last Values Glucose (Clinic) 186 mg/dL (60-115) H 02/13/24 15:27 Hgb A1c (Clinic) 9.2 % (4.0-6.0) H 02/13/24 15:41 Assessment & Plan Assessment & Plan (1) Type 2 diabetes mellitus with hyperglycemia: Code(s): E11.65 - Type 2 diabetes mellitus with hyperglycemia Category: Medical Qualifiers: Diabetes mellitus shelter insulin use: with shelter use Qualified Code(s): E11.65 - Type 2 diabetes mellitus with hyperglycemia; Z79.4 - long term care phlebotomist (current) use of insulin Plan: Having increased hypoglycemia. Since her tresiba was increased to 100 and mounjaro increased to 5. Would decrease tresiba to 60mg if she receives the mounjaro 10. She will decrease tresiba to 80mg if continuing on 5mg. She acknowledges understanding Will closely follow up (2) long term care phlebotomist (current) use of insulin: Code(s): Z79.4 - [facility] (current) use of insulin Category: Medical Plan: see plan above (3) Diabetic nephropathy: Code(s): E11.21 - Type 2 diabetes mellitus with diabetic nephropathy Category: Medical Qualifiers: Diabetes mellitus type: type 2 Qualified Code(s): E11.21 - Type 2 diabetes mellitus with diabetic nephropathy Plan: continue A1C control Orders: Orders AMB Hemoglobin A1c 02/13/24 E11.9 - Type 2 diabetes mellitus without complications Lyme IgG/IgM w/reflex to WB 02/13/24 R21 - Rash and other nonspecific skin eruption Medications: New tirzepatide (Mounjaro) 10 mg (0.5 mL) subcut QWEEK 6 mL 3RF Discontinued tirzepatide (Mounjaro) Discontinued Reason: Doctor's Order 5 mg (0.5 mL) subcut QWEEK 2 mL 2RF Coding Level of Care Code Est Pt Level 5 (26409) Diagnoses Type 2 diabetes mellitus with hyperglycemia, with long-term current use of insulin E11.65; Z79.4 Diabetes mellitus shelter insulin use: with shelter use long term care phlebotomist (current) use of insulin Z79.4 Diabetic nephropathy associated with type 2 diabetes mellitus E11.21 Diabetes mellitus type: type 2
[2024-02-13 15:21] VITALS: BP 124/76; PULSE 101; BMI 32.5
[2024-02-13 15:31] LABS: Glucose, Whole Blood 186 mg/dL (60-115)
== END 2024-02-13 16:25 | disposition home or self-care (01) ==
PROVIDERS: PCP Internal Medicine; Visit Provider Internal Medicine
DX: E11.65 Type 2 diabetes mellitus with hyperglycemia (principal); Z79.4 Long term (current) use of insulin; E11.21 Type 2 diabetes mellitus with diabetic nephropathy
CPT/HCPCS: 99214

== ENCOUNTER → 2024-02-13 15:13 | Outpatient (BNVA) | payer OTHER, SELFPAY | PROVIDERS: PCP Internal Medicine; Visit Provider Internal Medicine | DX: E11.65 Type 2 diabetes mellitus with hyperglycemia (principal); E11.21 Type 2 diabetes mellitus with diabetic nephropathy; R21 Rash and other nonspecific skin eruption; Z79.4 Long term (current) use of insulin | CPT/HCPCS: 82947; 83036; 99212 ==

== ENCOUNTER 2024-05-16 08:47 | Outpatient (AMB) | payer OTHER, SELFPAY ==
--- NOTE | 2024-05-16 08:56 | AM.OFFWIN_ITS ---
Intake Vital Signs 3 05/16/24 08:58 Height 5 ft 4 in Weight 187 lb BMI 32.1 BP 140/100 H Blood Pressure Location Lt brachial Position Sitting Pulse 92 Pulse Source Pulse Oximeter Pulse Oximetry (%) 98 Oxygen Delivery Method Room Air Intake Visit Reasons: EP infected leg Intake Note: Patient here for left leg possible infection, she states she was in the ER in the beginning of april with cellulitis and was put on antibiotics which she finished off about 1 week later she developed blisters that have broke and are now open and states it has not improved. Patient Tobacco Use Status: Former Tobacco user Allergies No Known Allergies [No Known Allergies*] Allergy (Verified 05/16/24 09:00) Do you need a note to return to daycare/school/sports/work: No HPI HPI Comments 2 History of Present Illness0 Details Patient is a 58-year-old female complaining of left lower leg pain, swelling, blisters and hardness. She states she went to the [facility] emergency department on April 23 because she had swelling and redness of her right lower leg. She got an ultrasound which was negative for DVT and a CT scan which only showed cellulitis. According to the notes from [facility], she was given IV Ancef and discharged on clindamycin. The patient tells me should took the clindamycin as directed in fall. She states she started developing blisters on her left lower extremity and they have since popped and are weeping and her skin is peeling open and it is very painful and it has turned red. 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 Daughter No problems noted. Social History Household Members: Family Housing: Other Alcohol intake: never Patient Tobacco Use Status: Former Tobacco user Tobacco use type: Cigarette Years Smoked: 25 years e-Cigarette/Vaping Use: Currently Using service: No Current occupational status: disabled Cognitive needs: No Hearing needs: No Vision needs: Yes Physical Exam Vital Signs: Last Vital Signs Pulse 92 05/16/24 08:58 BP 140/100 H 05/16/24 08:58 Pulse Ox 98 05/16/24 08:58 Oxygen Delivery Method Room Air 05/16/24 08:58 BMI result Body Mass Index 32.1 Const General: cooperative, healthy appearing, comfortable, no acute distress and well developed Orientation/consciousness: patient oriented x3 Limitations: no limitations HEENT Head: Yes normal to inspection Eyes General: appearance normal, both eyes and all related structures Neck Neck: Yes normal visual inspection and Yes full ROM Resp Effort & Inspection: normal respiratory effort and able to speak in complete sentences Neuro General: patient oriented x3 Extrem Other: General: Yes normal to inspection Assessment & Plan Assessment & Plan (1) Lower extremity pain, left: Code(s): M79.605 - Pain in left leg Plan: Spoke with patient's primary care doctor Dr. Aguillon, showed her the pictures of the patient's leg and told the story and she recommended she go to the emergency department, called [facility] ED with expect. Plan see above Coding Level of Care Code Est Pt Level 5 (70370) Diagnoses Lower extremity pain, left M79.605
[2024-05-16 08:58] VITALS: BP 140/100; PULSE 92; O2SAT 98; BMI 32.1
== END 2024-05-16 09:56 | disposition home or self-care (01) ==
PROVIDERS: PCP Internal Medicine; Visit Provider Physician Assistant
DX: M79.605 Pain in left leg (principal)

== ENCOUNTER → 2024-05-16 08:47 | Outpatient (BNVA) | payer OTHER, SELFPAY | PROVIDERS: PCP Internal Medicine | DX: M79.605 Pain in left leg (principal) | CPT/HCPCS: 99212 ==

== ENCOUNTER 2024-06-19 15:53 | Outpatient (AMB) | payer OTHER, SELFPAY ==
--- NOTE | 2024-06-19 15:54 | A.OFFVIS_ITS ---
Vital Signs 06/19/24 15:55 Height 5 ft 4 in Weight 211 lb 10.3 oz BMI 36.3 BP 138/82 Blood Pressure Location Rt brachial Position Sitting Pulse 79 Pulse Source Pulse Oximeter Intake Visit Reasons: T2DM Intake Note: Patient presents today for a follow-up on Type 2 Diabetes Mellitus: Last Diabetic Eye Exam: DUE Last Podiatry Exam- Does not see a Unemployment Specialist Most recent HbA1c- 9.4%, 06/19/2024 Random Glucose- 153 mg/dL, Today Pull Socket Assembler Required: No Accompanied by: Self / Same As Patient Allergies No Known Allergies [No Known Allergies*] Allergy (Verified 05/16/24 09:00) Medication List - Last Reconciled 06/19/24 by Marlee Rolon MD aspirin (Adult Low Dose Aspirin) 81 mg PO DAILY atorvastatin 80 mg PO BEDTIME blood sugar diagnostic (FreeStyle Lite Strips) test blood sugar twice a day blood-glucose meter (FreeStyle Lite Meter kit) test four times a day cholecalciferol (vitamin D3) 25 mcg PO DAILY 90 days flash glucose scanning reader (FreeStyle Kera 2 Axtell) As directed flash glucose sensor (FreeStyle Kera 2 Sensor kit) As directed every 2 weeks insulin degludec (Tresiba FlexTouch U-100 insulin) 80 units subcut BEDTIME lancets (FreeStyle Lancets) use to check blood sugar twice a day lancets (TRUEplus Lancets) 4 times a day levothyroxine 50 mcg PO DAILY metoprolol succinate ER 100 mg PO DAILY Mounjaro (tirzepatide) 10 mg (0.5 mL) subcut QWEEK NS omeprazole 40 mg PO DAILY pen needle, diabetic (BD Pamela 2nd Gen Pen Needle) As directed 4 times a day pioglitazone 15 mg PO DAILY HPI Comments Details: The patient is a 58-year-old female with DM type 2 who presents for management of diabetes. Past medical history: DM2, HTN, HLD, methadone Micro and macrovascular complications:neuropathy Diabetes medications: -Mounjaro 5 mg Qwkly -Jardiance 10 mg -Tresiba 60 units -Humalog 14 small meals, 16 medium meals and 18 large meals TiD (is using 24 units for most meals) ? ? + 2 unit bg>200 ? ? + 4 unit bg> 250 ? ? + 6 unit bg>300 She has not been using the short acting insulin as she has had increased lows Kera download shows 45% in target, 0% lows (from 7%). GMI ? from 6.0%, avg 193. 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 NAD EYES: EOMI. Anicteric. HENT: Moist mucous membranes. No scleral icterus. No cervical lymphadenopathy. LUNGS: Clear to auscultation bilaterally. CARDIOVASCULAR: Regular rate and rhythm. No murmur. No JVD. ABDOMEN: Soft, non-tender +bs EXTREMITIES: No edema. Non-tender. SKIN: No rashes or lesions. Warm. NEUROLOGIC: No focal neurological deficits. CN II-XII grossly intact PSYCHIATRIC: Cooperative. 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 Daughter No problems noted. Social History Household Members: Family Housing: Other Alcohol intake: never Patient Tobacco Use Status: Former Tobacco user Tobacco use type: Cigarette Years Smoked: 25 years e-Cigarette/Vaping Use: Currently Using service: No Current occupational status: disabled Cognitive needs: No Hearing needs: No Vision needs: Yes Physical Exam Vital Signs: Last Vital Signs Pulse 79 06/19/24 15:55 BP 138/82 06/19/24 15:55 BMI result Body Mass Index 36.3 Results AMB Hemoglobin A1c AMB Hemoglobin A1c 9.4 % Last Edit by RED Caldwell on 06/19/24 16:24 Results Reviewed Results Reviewed: Laboratory Last Values Glucose (Clinic) 153 mg/dL (60-115) H 06/19/24 16:00 Hgb A1c (Clinic) 9.4 % (4.0-6.0) H 06/19/24 16:23 Assessment & Plan Assessment & Plan (1) Type 2 diabetes mellitus with hyperglycemia: Code(s): E11.65 - Type 2 diabetes mellitus with hyperglycemia Category: Medical Qualifiers: Diabetes mellitus intermediate insulin use: with intermediate use Qualified Code(s): E11.65 - Type 2 diabetes mellitus with hyperglycemia; Z79.4 - residential (current) use of insulin Plan: Patients hypoglycemia has resolve. A1C 9.4%-uncontrolled increase to mounjaro to 10mg daily. Increase tresiba to 80 units Start actos 15mg daily Call if hypoglycemia recurs Orders: Orders AMB Hemoglobin A1c 06/19/24 Marlee Rolon MD . - Type 2 diabetes mellitus with other specified complication, E66.9 - Obesity, unspecified Medications: New pioglitazone 15 mg PO DAILY 90 tabs 3RF Marlee Rolon MD furosemide 20 mg PO DAILY PRN 30 tabs 3RF leg swelling Marlee Rolon MD Changed From tirzepatide 5 mg subcut QWEEK . - Type 2 diabetes mellitus with other specified complication, E66.9 - Obesity, unspecified To Mounjaro (tirzepatide) 10 mg (0.5 mL) subcut QWEEK 6 mL 3RF NS E11. - Type 2 diabetes mellitus with other specified complication, E66.9 - Obesity, unspecified Marlee Rolon MD From insulin degludec 60 units (0.6 mL) subcut BEDTIME 30 mL 5RF .65 - Type 2 diabetes mellitus with hyperglycemia To insulin degludec (Tresiba FlexTouch U-100 insulin) 80 units subcut BEDTIME E11.65 - Type 2 diabetes mellitus with hyperglycemia Jose Clark MD Refilled levothyroxine 50 mcg PO DAILY 90 tabs 3RF Marlee Rolon MD E03.9 - Hypothyroidism, unspecified Discontinued empagliflozin Discontinued Reason: Doctor's Order 10 mg PO DAILY 30 tabs 4RF Coding Level of Care Code Est Pt Level 4 (47530) Diagnoses Type 2 diabetes mellitus with hyperglycemia, with long-term current use of insulin E11.65; Z79.4 Diabetes mellitus intermediate insulin use: with intermediate use
[2024-06-19 15:55] VITALS: BP 138/82; PULSE 79; BMI 36.3
[2024-06-19 16:05] LABS: Glucose, Whole Blood 153 mg/dL (60-115)
== END 2024-06-19 16:23 | disposition home or self-care (01) ==
LOC: HO.ENCR 15:53
PROVIDERS: PCP Internal Medicine; Visit Provider Internal Medicine
DX: E11.65 Type 2 diabetes mellitus with hyperglycemia (principal); Z79.4 Long term (current) use of insulin

== ENCOUNTER → 2024-06-19 15:53 | Outpatient (BNVA) | payer OTHER, SELFPAY | PROVIDERS: PCP Internal Medicine; Visit Provider Internal Medicine | DX: E11.65 Type 2 diabetes mellitus with hyperglycemia (principal); E11.69 Type 2 diabetes mellitus with other specified complication; E66.9 Obesity, unspecified; E03.9 Hypothyroidism, unspecified; Z79.4 Long term (current) use of insulin; Z79.899 Other long term (current) drug therapy | CPT/HCPCS: 82947; 83036; 99212 ==

== ENCOUNTER → 2024-07-31 08:13 | Outpatient (BNVA) | payer OTHER, SELFPAY | PROVIDERS: PCP Internal Medicine; Visit Provider Internal Medicine | DX: E11.65 Type 2 diabetes mellitus with hyperglycemia (principal); Z79.4 Long term (current) use of insulin; Z79.899 Other long term (current) drug therapy | CPT/HCPCS: 82947; 99212 ==

== ENCOUNTER 2024-07-31 08:18 | Outpatient (AMB) | payer OTHER, SELFPAY ==
--- NOTE | 2024-07-31 08:40 | A.OFFVIS_ITS ---
Vital Signs 07/31/24 08:41 Height 5 ft 4 in Weight 213 lb 10.047 oz BMI 36.7 BP 144/72 H Blood Pressure Location Lt brachial Position Sitting Pulse 93 Pulse Source Pulse Oximeter Intake Visit Reasons: DM Intake Note: Patient present today to follow up on Diabetes Mellitus. 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 not see a Transport Truck Driver Random Glucose: mg/dl HgA1C: 9.4% 06/19/24 Bricklayer'S Assistant Required: No Accompanied by: Self / Same As Patient Allergies No Known Allergies [No Known Allergies*] Allergy (Verified 07/31/24 08:46) Medication List - Last Reconciled 07/31/24 by Jose Clark MD aspirin (Adult Low Dose Aspirin) 81 mg PO DAILY atorvastatin 80 mg PO BEDTIME blood sugar diagnostic (FreeStyle Lite Strips) test blood sugar twice a day blood-glucose meter (FreeStyle Lite Meter kit) test four times a day cholecalciferol (vitamin D3) 25 mcg PO DAILY 90 days flash glucose scanning reader (ChromaDexStyle Kera 2 [place]) As directed flash glucose sensor (FreeStyle Kera 2 Sensor kit) DIRECTED EVERY 2 WEEKS furosemide 20 mg PO DAILY PRN insulin degludec (Tresiba FlexTouch U-100 insulin) 80 units (0.8 mL) subcut BEDTIME lancets (FreeStyle Lancets) use to check blood sugar twice a day lancets (TRUEplus Lancets) 4 times a day levothyroxine 50 mcg PO DAILY metoprolol succinate ER 100 mg PO DAILY Mounjaro (tirzepatide) 10 mg (0.5 mL) subcut QWEEK NS omeprazole 40 mg PO DAILY pen needle, diabetic (BD Pamela 2nd Gen Pen Needle) As directed 4 times a day pioglitazone 15 mg PO DAILY HPI Comments Details: Patient is a 58-year-old female with DM type 2 who presents for management of diabetes. Past medical history: DM2, HTN, HLD, methadone Micro and macrovascular complications:neuropathy Diabetes medications: - -Mounjaro 10 mg Qwkly -Actos 15 mg QD -Tresiba 70 units dopped last wk -Humalog just for correction Kera download shows she is using the sensor 75 % of the time for average glucose is 123 with 6.3 %. 87 % in target range with 9% hyperglycemia and 4 hypoglycemia. 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 Daughter No problems noted. Social History Household Members: Family Housing: Other Alcohol intake: never Patient Tobacco Use Status: Former Tobacco user Tobacco use type: Cigarette Years Smoked: 25 years e-Cigarette/Vaping Use: Currently Using service: No Current occupational status: disabled Cognitive needs: No Hearing needs: No Vision needs: Yes Physical Exam Vital Signs: BMI result Body Mass Index 36.7 Absence of Cushingoid features. Absence of acromegalic features. Neck exam reveals nl size thyroid about 15 gms. No thyroid nodules palpable. No carotid bruits present. Lungs CTA. Heart S1 S2, Reg R/R. No M/R/ G. Skin exam reveals absence of vitiligo or acanthosis nigricans. Abdominal exam reveals Soft NT/ND with NA BS. No organomegaly present. Neck Other: . Extrem Other: Visual exam of foot performed. There is erythema and tenderness to both lower extremities as well as a superficial ulceration on the right ankle s. No onchomycosis, no callouses.Pulses 2 + distally Sensation decreased to monofilament exam. Vibratory sensation sensed is decreased with 128 Hz tuning fork Assessment & Plan Assessment & Plan (1) Uncontrolled diabetes mellitus: Code(s): E11.65 - Type 2 diabetes mellitus with hyperglycemia Category: Medical Plan: This is a 58-year-old white female with a history of type 2 diabetes being treated with metformin, Mounjaro, Actos and basalinsulin with excellent improved glycemic control but worsening kidney function to CKD stage 4. The plan is to continue the current management but have the patient decrease the Tresiba if continued hypoglycemia by 10 units. I also message the patient's primary care provider regarding the possible cellulitis in lower extremity and superficial ulceration. I told patient to contact her primary care provider if she does not hear back from her neck is day or so Coding Level of Care Code Est Pt Level 4 (72885) Complex EM visit Add On G2211 Diagnoses Uncontrolled diabetes mellitus E11.65
[2024-07-31 08:41] VITALS: BP 144/72; PULSE 93; BMI 36.7
[2024-07-31 08:55] LABS: Glucose, Whole Blood 137 mg/dL (60-115)
== END 2024-07-31 09:59 | disposition home or self-care (01) ==
LOC: HO.ENCR 08:18
PROVIDERS: PCP Internal Medicine; Visit Provider Internal Medicine Endocrinology, Diabetes & Metabolism
DX: E11.65 Type 2 diabetes mellitus with hyperglycemia (principal)
CPT/HCPCS: 99214; G2211

== ENCOUNTER 2024-08-01 14:30 | Outpatient (REF) | payer OTHER, SELFPAY | END 2024-08-01 14:31 | disposition home or self-care (01) | LOC: HO.LNP 14:30 | PROVIDERS: PCP Internal Medicine; Visit Provider Internal Medicine | DX: L03.115 Cellulitis of right lower limb (principal); L03.116 Cellulitis of left lower limb; N30.00 Acute cystitis without hematuria; I73.9 Peripheral vascular disease, unspecified; E11.65 Type 2 diabetes mellitus with hyperglycemia; I10 Essential (primary) hypertension | CPT/HCPCS: 87086; 87088; 87186; 96127; 99212 ==

== ENCOUNTER 2024-08-01 14:30 | Outpatient (AMB) | payer OTHER, SELFPAY ==
[2024-08-01 14:32] VITALS: BP 162/80; PULSE 87; O2SAT 100; BMI 35.9
--- NOTE | 2024-08-01 14:32 | A.OFFPC_ITS ---
Vital Signs 08/01/24 14:32 Height 5 ft 4 in Weight 209 lb 2 oz BMI 35.9 BP 162/80 H Blood Pressure Location Lt brachial Position Sitting Pulse 87 Pulse Source Pulse Oximeter Pulse Oximetry (%) 100 Oxygen Delivery Method Room Air Intake Visit Reasons: LE with superficial ulcer on the right ankle Allergies No Known Allergies [No Known Allergies*] Allergy (Verified 08/01/24 14:32) Medication List - Last Reconciled 08/01/24 by Cal Aguillon MD aspirin (Adult Low Dose Aspirin) 81 mg PO DAILY atorvastatin 80 mg PO BEDTIME blood sugar diagnostic (FreeStyle Lite Strips) test blood sugar twice a day blood-glucose meter (FreeStyle Lite Meter kit) test four times a day cholecalciferol (vitamin D3) 25 mcg PO DAILY 90 days flash glucose scanning reader (American HealthNetStyle Kera 2 [place]) As directed flash glucose sensor (FreeStyle Kera 2 Sensor kit) DIRECTED EVERY 2 WEEKS furosemide 20 mg PO DAILY PRN insulin degludec (Tresiba FlexTouch U-100 insulin) 80 units (0.8 mL) subcut BEDTIME lancets (FreeStyle Lancets) use to check blood sugar twice a day lancets (TRUEplus Lancets) 4 times a day levothyroxine 50 mcg PO DAILY metoprolol succinate ER 100 mg PO DAILY Mounjaro (tirzepatide) 10 mg (0.5 mL) subcut QWEEK NS omeprazole 40 mg PO DAILY pen needle, diabetic (BD Pamela 2nd Gen Pen Needle) As directed 4 times a day pioglitazone 15 mg PO DAILY Tobacco use date assessed: 08/01/24 Dental Screening Dental Screen Date: 08/01/24 Did you have a dental visit in the last 12 months?: Yes Did you have a dental problem in the last 6 months where you did not have access to dental care?: No Was dental information given to patient?: Patient has dentist HPI LE with superficial ulcer on the right ankle HPI Details - The patient is a 58-year-old female pr esenting with cellulitis: - Reported blistering and severe cellulitis on legs approximately 1-2 months ago. Both sides - Referred to the Emergency Department a nd placed on clindamycin. - Current issue with erythema and residu al cellulitis noted on left leg being more severe than the right. - No prior vascular specialist seen; yordy logan has peripheral vascular disease. - Mild edema identified by previous prov ider. - No current wounds observed Problem List - Cellulitis - Hypertension - Peripheral Vascular Disease - Edema - Urinary Tract Infection [place] [facility] - Gold Buyer: Manages unspecified c ondition - Kidney specialist (Dr. Johns): Maria Alejandra larson hypertension Review of Systems - Cardiovascular: Reports swollen legs, past diagnosis of edema - Genitourinary: Reports frequent urinar y tract infections for the past week - Musculoskeletal: Reports cellulitis on legs, left worse than right General: No fever no chills neurological: No headaches no dizziness ear nose throat: No sore throat no hearing difficulty no ear pain cardiovascular: No syncope, no chest pain, no palpitations gastrointestinal: No nausea vomiting or diarrhea endocrine: yes polyuria polydipsia no heat intolerance skin: No new complaints Physical Exam general: No acute distress HEENT: No acute findings neck: Supple respiratory system: Able to talk in full sentences, no audible wheeze no stridor cardiovascular: S1-S2, blood pressure 162/80 gastrointestinal: No pain extremities: Mild edema, cellulitis on legs, left worse than right, top of right foot with erythema but no open sores CRYPTANALYST: Alert awake oriented x3 motor sensory intact skin: Normal turgor, cellulitis on legs Patient Instructions - Continue current medication regimen fo r blood pressure and cellulitis as instructed by respective specialists. - Attend wound clinic as recommended by emergency department should complications arise. - Monitor blood pressure and seek medica l advice if further elevated at subsequent readings. - Follow up with switching operator regarding hypertension management. - Macrobid sent for urinary tract infect ion - and Augmentin for cellulitis - referral to vascular specialist placed [facility] Medical History Hypothyroidism Vitamin D deficiency Hyperlipidemia LDL goal <100 Type 2 diabetes mellitus with hyperglycemia Uncontrolled diabetes mellitus Methadone dependence [facility] (current) use of insulin Chronic GERD Lipid disorder Hypertension, essential Surgical History Hx of mammogram Hx of cholecystectomy History of elbow surgery Family History Father Diabetes Mother Diabetes Brother Diabetes Brother No problems noted. Daughter No problems noted. Social History Household Members: Family Housing: Other Alcohol intake: never Patient Tobacco Use Status: Former Tobacco user Tobacco use type: Cigarette Years Smoked: 25 years e-Cigarette/Vaping Use: Currently Using service: No Current occupational status: disabled Cognitive needs: No Hearing needs: No Vision needs: Yes Questionnaire PHQ-9 Over the last 2 weeks, how often have you been bothered by any of the following problems? 1. Little interest or pleasure in doing things: not at all 2. Feeling down, depressed, or hopeless: not at all 3. Trouble falling or staying asleep, or sleeping too much: nearly every day 4. Feeling tired or having little energy: nearly every day 5. Poor appetite or overeating: nearly every day 6. Feeling bad about yourself - or that you are a failure or have let yourself or your family down: not at all 7. Trouble concentrating on things, such as reading the newspaper or watching television: not at all 8. Moving or speaking so slowly that other people could have noticed. Or the opposite - being so fidgety or restless that you have been moving around a lot more than usual: not at all 9. Thoughts that you would be better off or of hurting yourself in some way: not at all Total score: 9 Depression Screening Interpretation: Negative Depression Screening Done: Yes 06238 - PHQ-9 Billing: Yes Source: Developed by Drs. Jose Morin, Shasha Calixto, Pedro Bryan and colleagues, with an educational ciara from [employer]. Thrive Questionnaire Date Thrive assessed: 08/01/24 I am a: Patient What is your living situation today?: I have a steady place to live Within the past 12 months, did the food you bought not last and you didn't have the money to get more?: Never true Within the past 12 months, did you worry whether your food would run out before you got money to buy more?: Never true Do you have trouble paying for medicines?: No Do you have trouble getting transportation to medical appointments?: Yes Do you have trouble paying your heating and electricity bill?: Yes Do you have trouble taking care of your child, family member or friend?: No Do you have trouble with day-to-day activities such as bathing, preparing meals, shopping, managing finances, etc.?: Yes Are you currently unemployed and looking for a job?: No Are you interested in more education?: No Please select the resources that you would like help with: None Currently or been in a relationship where the following occur: No concerns reported THRIVE Score: 2 AUDIT C Alcohol Use Questionnaire (AUDIT-C) 1. How often do you have a drink containing alcohol?: Never 3. How often do you have six or more drinks on one occasion?: Never Total Score: 0 Score Reviewed/Action Taken: Yes DURGA-7 AMB Questionnaire DURGA-7 Date DURGA - 7 assessed: 08/01/24 Feeling nervous, anxious, or on edge: 2 = More than half the days Not being able to stop or control worryin = More than half the days Worrying too much about different things: 2 = More than half the days Trouble relaxin = Not at all Being so restless that it is hard to sit still: 0 = Not at all Becoming easily annoyed or irritable: 0 = Not at all Feeling afraid as if something awful might happen: 0 = Not at all Total DURGA-7 score (0-4 normal; 5-9 mild; 10-14 moderate; 15-21 severe): 6 Source: Developed by Drs. Jose Morin, Shasha Calixto, Pedro Bryan and colleagues, with an educational ciara from [employer]. DURGA-7 Assessment Billing DURGA-7 Assessment Tool: DURGA-7 Assessment 15420 Physical exam (Primary Care) Vital Signs: Last Vital Signs Pulse 87 08/01/24 14:32 BP 162/80 H 08/01/24 14:32 Pulse Ox 100 08/01/24 14:32 Oxygen Delivery Method Room Air 08/01/24 14:32 BMI result Body Mass Index 35.9 Tobacco/Smoking Status: Tobacco use Status Tobacco use date assessed 08/01/24 08/01/24 14:34 Patient Tobacco Use Status Former Tobacco user 08/01/24 14:34 Tobacco use type Cigarette 08/01/24 14:34 e-Cigarette/Vaping Use Currently Using 08/01/24 14:34 PHQ-9: PHQ-9 Score PHQ-9: Total score 9 08/01/24 15:07 Depression Screening Interpretation: Negative Thrive Assessment: Date of Thrive Assessment Date Thrive assessed 08/01/24 08/01/24 14:34 Currently or been in a relationship where the following occur: No concerns reported Coding Level of Care Code Est Pt Level 4 (00153) Diagnoses Cellulitis of both lower extremities L03.115; L03.116 Acute cystitis without hematuria N30.00 Hematuria presence: without hematuria Recurrent cellulitis of lower extremity L03.119 Peripheral vascular disease I73.9 Uncontrolled type 2 diabetes mellitus with hyperglycemia E11.65 Diabetes mellitus type: type 2 Glycemic state: with hyperglycemia Additional Codes DURGA-7 Assessment Billing - DURGA-7 Assessment Tool: DURGA-7 Assessment [id number] ([id number]) PHQ-9 - 48695 - PHQ-9 Billing: Yes ([id number]) Assessment & Plan Assessment & Plan (1) Cellulitis of both lower extremities: Code(s): L03.115 - Cellulitis of right lower limb; L03.116 - Cellulitis of left lower limb Category: Medical (2) Acute cystitis: Code(s): N30.00 - Acute cystitis without hematuria Category: Medical Qualifiers: Hematuria presence: without hematuria Qualified Code(s): N30.00 - Acute cystitis without hematuria (3) Recurrent cellulitis of lower extremity: Code(s): L03.119 - Cellulitis of unspecified part of limb Category: Medical (4) Peripheral vascular disease: Code(s): I73.9 - Peripheral vascular disease, unspecified Category: Medical (5) Uncontrolled diabetes mellitus: Code(s): E11.65 - Type 2 diabetes mellitus with hyperglycemia Category: Medical Qualifiers: Diabetes mellitus type: type 2 Glycemic state: with hyperglycemia Qualified Code(s): E11.65 - Type 2 diabetes mellitus with hyperglycemia Plan - The patient is a 58-year-old female presenting with cellulitis: - Reported blistering and severe cellulitis on legs approximately 1-2 months ago. Both sides - Referred to the Emergency Department and placed on clindamycin. - Current issue with erythema and residual cellulitis noted on left leg being more severe than the right. - No prior vascular specialist seen; patient has peripheral vascular disease. - Mild edema identified by previous provider. - No current wounds observed Problem List - Cellulitis - Hypertension - Peripheral Vascular Disease - Edema - Urinary Tract Infection [place] [facility] - Gold Buyer: Manages unspecified condition - Kidney specialist (Dr. Johns): Manages hypertension Review of Systems - Cardiovascular: Reports swollen legs, past diagnosis of edema - Genitourinary: Reports frequent urinary tract infections for the past week - Musculoskeletal: Reports cellulitis on legs, left worse than right General: No fever no chills neurological: No headaches no dizziness ear nose throat: No sore throat no hearing difficulty no ear pain cardiovascular: No syncope, no chest pain, no palpitations gastrointestinal: No nausea vomiting or diarrhea endocrine: yes polyuria polydipsia no heat intolerance skin: No new complaints Physical Exam general: No acute distress HEENT: No acute findings neck: Supple respiratory system: Able to talk in full sentences, no audible wheeze no stridor cardiovascular: S1-S2, blood pressure 162/80 gastrointestinal: No pain extremities: Mild edema, cellulitis on legs, left worse than right, top of right foot with erythema but no open sores CRYPTANALYST: Alert awake oriented x3 motor sensory intact skin: Normal turgor, cellulitis on legs Patient Instructions - Continue current medication regimen for blood pressure and cellulitis as instructed by respective specialists. - Attend wound clinic as recommended by emergency department should complications arise. - Monitor blood pressure and seek medical advice if further elevated at subsequent readings. - Follow up with switching operator regarding hypertension management. - Macrobid sent for urinary tract infection - and Augmentin for cellulitis - referral to vascular specialist placed Orders: Orders Urine Culture Today N30.00 - Acute cystitis without hematuria Referrals Vascular Surgery Referral I73.9 - Peripheral vascular disease, unspecified, L03.119 - Cellulitis of unspecified part of limb Medications: New nitrofurantoin macrocrystal must administer with a meal/food 100 mg PO BID 14 caps 0RF Urine infection amoxicillin-pot clavulanate 500-125 mg (Augmentin) 1 tab PO BID 20 tabs 0RF Leg cellulitis
== END 2024-08-01 15:21 | disposition home or self-care (01) ==
PROVIDERS: PCP Internal Medicine; Visit Provider Internal Medicine
DX: L03.115 Cellulitis of right lower limb (principal); I73.9 Peripheral vascular disease, unspecified; E11.65 Type 2 diabetes mellitus with hyperglycemia; L03.116 Cellulitis of left lower limb; N30.00 Acute cystitis without hematuria

== ENCOUNTER 2024-10-02 13:20 | Outpatient (AMB) | payer OTHER, SELFPAY ==
--- NOTE | 2024-10-02 13:34 | A.OFFVIS_ITS ---
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 Patient states she has swelling , redness and weeping. The weeping is sporadic . 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 She states this has been going on for over 3-4 months now. She has been treated multiple times with antibiotics, different types of antibiotics, and states that the swelling, pain, and discoloration of her legs continues. Complaints include pain, swelling of lower extremities, cramping, fatigue, and heaviness of the lower extremities. It has been affecting their daily activities including walking, standing, physical activity. It is noted more so in left leg. She states she has been having fluid blisters particularly on the left side. She states she rarely gets weeping from bilateral lower extremities. Patient denies any previous venous surgery or injections. Patient denies any history of DVT/ PE. Patient denies any history of phlebitis. Trial of compression includes - elevation with some relief and diabetic socks They now present for vascular evaluation regarding their varicose veins. 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 Daughter No problems noted. Social History Household Members: Family Housing: Other Alcohol intake: never Patient Tobacco Use Status: Former Tobacco user Tobacco use type: Cigarette Years Smoked: 25 years e-Cigarette/Vaping Use: Currently Using service: No Current occupational status: disabled Cognitive needs: No Hearing needs: No Vision needs: Yes Review of Systems Const Reports as per HPI and Denies weakness ENT Reports Normal hearing present and Denies dizziness Card Reports as per HPI, Denies chest pain, Denies chest pain at rest, Denies chest pain with activity, Denies dyspnea and Denies dyspnea on exertion Resp Reports as per HPI, Denies cough, Denies dyspnea and Denies dyspnea on exertion GI Reports as per HPI, Denies abdominal pain, Denies nausea and Denies vomiting Musc Denies numbness Skin/Breast Reports as per HPI, Denies erythema and Denies wounds Neuro Reports Normal hearing present, Denies dizziness, Denies numbness, Denies Sensory deficit (Neuro) and Denies weakness Psych Reports no additional complaints Endo Reports no additional complaints Physical Exam Const General: healthy appearing and no acute distress Orientation/consciousness: patient oriented x3 HEENT Head: Yes normal to inspection Ears: hearing grossly normal bilaterally Mouth: Normal oral and palatal mucosa present Resp Effort & Inspection: normal respiratory effort and able to speak in complete sentences Auscultation: clear to auscultation bilaterally Cardio Jugular venous distension: no JVD Rate: regular rate Rhythm: regular rhythm Heart sounds: S1 normal heart sound present and S2 normal heart sound present Bruits: no abdominal aortic bruits, no carotid bruits, no femoral bruits and no renal bruits Peripheral pulses: Peripheral pulses 2+ throughout GI Inspection: Yes normal to inspection Palpation (GI): No Abdominal aortic bruit present Skin General skin exam: no rashes or lesions noted Wounds: no wounds Hair: normal Neuro General: patient oriented x3 Cranial nerves: Yes Normal hearing present Cognition (Neuro): normal cognition Gait exam (Neuro): Normal gait present Motor exam (neuro): 5/5 motor strength present throughout Sensory Exam: No Sensory deficit (Neuro) Extrem Other: Bilateral lower extremities: Discoloration noted from the tibial tuberosity to the tips of the toes, light erythematous. Some lymphorrhea noted bilaterally, clear serous fluid. Hyperkeratosis noted. CEAP: C - 4 E - primary A - superficial P - reflux General: Yes normal to inspection, Yes full ROM, Yes capillary refill normal and Yes normal gait Assessment & Plan Assessment & Plan (1) Varicose veins of both lower extremities with inflammation: Code(s): I83.11 - Varicose veins of right lower extremity with inflammation; I83.12 - Varicose veins of left lower extremity with inflammation Category: Medical Plan: Nora is presenting today on a referral for bilateral lower extremity peripheral vascular disease/cellulitis. In short, the patient has evidence of venous insu fficiency. I have discussed the pathophysiology with the patient. In addition I have provided informational material regarding venous disease to the patient. We have discussed conservative measures including compression, elevation, and exercise. I have also provided a handout regarding appropriate use of compression stockings and where to purchase good compression stockings as well. I have taken the liberty of ordering venous insufficiency testing with the patient. They will follow up with me after testing. The patient had an opportunity to ask questions regarding the treatment plan. All questions were answered. Imaging studies, laboratory studies and physical exam results were discussed and reviewed in detail. No major barriers to understanding were identified. The patient expressed understanding and agreement with the above treatment plan. The patient is aware they should contact our office by phone for worsening of the current condition or the appearance of new symptoms. Thank you for allowing me to participate in the vascular care of this patient. If you have any questions or concerns regarding the treatment for the above condition please do not hesitate to contact me. The office telephone contact is [phone]. This note is constructed using voice recognition software. While every effort has been made to ensure accuracy, solar panel technician errors may have been included. Thank you for allowing me to participate in the care of your patient. Yours sincerely, MOMO Dee (2) Lymphedema: Code(s): I89.0 - Lymphedema, not elsewhere classified Category: Medical Plan In short the patient has late onset lymphedema. The patient has been on conservative treatment for at least 3 months with minimal relief. Patient has tried 30 mm of mercury compression garments, elevation, exercise healthy diet and doing manual says self MLD to the best of their ability for over 4 weeks but with no significant relief. She has been compliant with the program but has provided minimal relief. In addition, on physical exam, we are noticing hyperpigmentation, lymphorrhea, and hyperplasia. It appears that she has stage 2 lymphedema. Patient has completed multiple forms of conservative therapy yet significant symptoms remain. Patient requires the use of a pneumatic compression device which we will assist in trying to have the patient obtain them; we will have her attend our lymphedema clinic on October 22. A pneumatic compression device will help reduce swelling and other lymphedema comorbidities. Thank you for allowing us to assist in this patient's care. Orders: Orders US venous duplex LE BI 1 Week I83.11 - Varicose veins of right lower extremity with inflammation, I83.12 - Varicose veins of left lower extremity with inflammation Coding Level of Care Code New Pt Level 4 (71721) Diagnoses Varicose veins of both lower extremities with inflammation I83.11; I83.12 Lymphedema I89.0
--- OUTSIDE RECORDS SUMMARY | 2024-10-02 14:12 | XMS_ITS | Clinical Summary ---
Author Organization [facility] Address [address] [place] [address] Phone Care Team Providers Care Mig Welder Name Role Phone Giuliano Villeda MD Primary Care Provider [phone] Medical History Medical History Date Comments Diabetes mellitus type 2, co ntrolled, with complications (CMS/HCC) DX:Diabetes mellitus type 2, controlled, with complications (HCC) Essential hypertension DX:Essent ial hypertension Esophageal reflux DX:Esophageal reflux Family History Medical History Relation Name Comments Blindness Maternal Grandmother Cataracts Neg Hx Glaucoma Neg Hx Macular degeneration Neg Hx Strabismus Neg Hx Relation Name Status Comments Maternal Grandmother Social History Tobacco Use Types Packs/Day Years Used Date Smoking Tobacco: Every Day Comments Unknown Sex and Gender Information Value Date Recorded Sex Assigned at Not on file Legal Sex Female 1:17 AM EST Gender Identity Not on file Sexual Orientation Not on file Obstetrics History Plan of Treatment Health Maintenance Due Date Last Done Comments Breast Cancer Screening 1966 DTaP,Tdap,and Td Vaccines (1 - Tdap) 1985 Hepatitis B Vaccines (1 of 3 - 19+ 3-dose series) 1985 Pneumococcal Vaccine: 50+ Ye ars (1 of 2 - PCV) 1985 Pneumococcal Vaccine: Pediat rics (0 to 5 Years) and At-Risk Patients (6 to 64 Years) (1 of 2 - PCV) 1985 Cervical Cancer Screening: P ap Smear 10/25/1987 Zoster Vaccines (1 of 2) 2016 COVID-19 Vaccine (2023-2 5 season) 2024 Influenza Vaccine (#1) 2024 Colorectal Cancer Screening: Colonoscopy 06/07/2024 Depression Screening 06/07/2024 HIV Screening 06/07/2024 Hepatitis C Screening 06/07/2024 Social Influencers of Health Screening 06/07/2024 HIB Vaccines Aged Out No longer eligi ble based on patient's age to complete this topic HPV Vaccines Aged Out No longer eligi ble based on patient's age to complete this topic Hepatitis A Vaccines Aged Out No long er eligible based on patient's age to complete this topic IPV Vaccines Aged Out No longer eligi ble based on patient's age to complete this topic MMR Vaccines Aged Out No longer eligi ble based on patient's age to complete this topic Meningococcal ACWY Vaccine Aged Out N o longer eligible based on patient's age to complete this topic Meningococcal B Vacine Aged Out No lo nger eligible based on patient's age to complete this topic RSV Immunization Patients Un tasia 20 months Aged Out No longer eligible b ased on patient's age to complete this topic Varicella Vaccines Aged Out No longer eligible based on patient's age to complete this topic Insurance Care Teams Mig Welder Relationship Specialty Start Date End Date Giuliano Villeda MD [address] [place], [place] [phone] PCP - General Internal Medicine 06/03/15
--- OUTSIDE RECORDS SUMMARY | 2024-10-02 14:12 | XMS_ITS | Clinical Summary ---
Author Organization [facility] Address [address] [address] Care Team Providers Care Electric Pile Driver Operator Name Role Phone Cal Aguillon MD Primary Care Provider [phone] Allergies No known active allergies Medications Aspirin 81 MG capsule Take 81 mg by mouth 1 (one) time each day 07/03/2016 Active atorvastatin (LIPITOR) 40 MG tablet Take 40 mg by mouth 1 (one) time each day Active Dulaglutide 1.5 MG/0.5ML solution pen-injector Inject 0.5 mL under the skin every 7 (seven) days Active insulin degludec (Tresiba FlexTouch) 100 UNIT/ML injection Inject 70 Units under the skin every night Active Insulin Lispro (HUMALOG KWIKPEN SC) Inject under the skin 3 times a day 14-26 units Active omeprazole (PriLOSEC) [address] capsule Take 20 mg by mouth in the morning and 20 mg in the evening. Do not crush or chew. . Active METHADONE HCL PO Take 120 mg by mouth Active levothyroxine (SYNTHROID, LEVOTHROID) 50 MCG tablet Take 50 mcg by mouth 1 (one) time each day 05/04/2023 Active metoprolol succinate XL (TOPROL-XL) 100 MG 24 hr tablet TAKE 1 TABLET (100 MG TOTAL) BY MOUTH 1 (ONE) TIME EACH DAY DO NOT CRUSH OR CHEW. 90 tablet 3 06/09/2024 Active Active Problems Problem Noted Date Diagnosed Date Diabetes mellitus, not otherwise specified 11/26 Stage 3b chronic kidney disease 08/22/2022 Diabetic glomerulonephritis 08/22/2022 Hypertensive nephrosclerosis 08/22/2022 Hypertension 08/22/2022 Localized edema 08/22/2022 Obstructive sleep apnea syndrome 08/22/2022 Dyslipidemia 08/22/2022 Chronic pain syndrome 08/22/2022 FCI use of methadone for pain management 0 08/22/2022 Resolved Problems Problem Noted Date Diagnosed Date Resolved Date Insomnia 11/27/2023 11/28/2023 Immunizations Name Administration Dates Next Due Influenza, Unspecified 06/15/2007 Family History Medical History Relation Comments Diabetes Brother Diabetes Father Diabetes Mother Relation Status Comments Brother Father Mother Social History Tobacco Use Types Packs/Day Years Used Date Smoking Tobacco: Former Cigarettes 1 2020 Smokeless Tobacco: Never Tobacco Cessation:Counseling Given: Not Answered Comments Unknown Sex and Gender Information Value Date Recorded Sex Assigned at Not on file Legal Sex Female 2:51 PM EDT Gender Identity Not on file Sexual Orientation Not on file Last Filed Vital Signs Vital Sign Reading Time Taken Comments Blood Pressure 130/80 05/30/2023 10:41 AM EDT Pulse 92 05/30/2023 10:41 AM EDT Temperature - - Respiratory Rate - - Oxygen Saturation 95% 05/30/2023 10:41 AM EDT Inhaled Oxygen Concentration - - Weight 96.3 kg (212 lb 6.4 oz) 05/30/2023 10:41 AM EDT Height 162.6 cm (5' 4 ) 05/30/2023 10:41 AM EDT Body Mass Index 36.46 05/30/2023 10:41 AM EDT Plan of Treatment Health Maintenance Due Date Last Done Comments Breast Cancer Screening 1966 Pneumococcal Vaccine: Pediat rics (0 to 5 Years) and At-Risk Patients (6 to 64 Years) (1 of 2 - PCV) 1972 Hepatitis B Vaccine (1 of 3 - 19+ 3-dose series) 10/24 Colorectal Cancer Screening: Annual FOBT 10/25/2015 Colorectal Cancer Screening: Colonoscopy 10/25/2015 Colorectal Cancer Screening: Sigmoidoscopy 10/25/2015 Diabetes: Hemoglobin A1C 05/18/2022 Diabetes: Ophthalmology Exam 05/18/2022 Diabetes: Pedal Pulse Checked 05/18/2022 Diabetes: Sensory Foot Exam 05/18/2022 Diabetes: Visual Foot Exam 05/18/2022 Influenza Vaccine (#1) 2024 06/15/[address] [place] [address] Care Teams Electric Pile Driver Operator Relationship Specialty Start Date End Date Cal Aguillon MD [address] [place] [id number] PCP - General Internal Medicine 05/17/22
== END 2024-10-02 14:03 | disposition home or self-care (01) ==
PROVIDERS: PCP Internal Medicine; Visit Provider Surgery Vascular Surgery
DX: I83.11 Varicose veins of right lower extremity with inflammation (principal); I83.12 Varicose veins of left lower extremity with inflammation; I89.0 Lymphedema, not elsewhere classified
CPT/HCPCS: 99204

== ENCOUNTER → 2024-10-02 13:20 | Outpatient (BNVA) | payer OTHER, SELFPAY | PROVIDERS: PCP Internal Medicine; Visit Provider Surgery Vascular Surgery | DX: I83.11 Varicose veins of right lower extremity with inflammation (principal); I83.12 Varicose veins of left lower extremity with inflammation; I89.0 Lymphedema, not elsewhere classified | CPT/HCPCS: 99202 ==

== ENCOUNTER 2024-10-22 13:14 | Outpatient (AMB) | payer OTHER, SELFPAY ==
[2024-10-22 13:38] VITALS: BMI 35.9
--- NOTE | 2024-10-22 13:38 | A.OFFVIS_ITS ---
Vital Signs 10/22/24 13:38 Height 5 ft 4 in Weight 209 lb BMI 35.9 Intake Visit Reasons: Lymphedema clinic Intake Note: BIlateral LE swelling x 6 months. Pt states she has swelling w/ or w/o ambulation. Pt has bilateral LE wounds w/ drainage and discoloration. States Left LE is starting to heal but the Right LE has a new wounds. Pt states the wounds are starting out as blisters. Pt also has hardening of the skin. Senior Compensation Consultant Required: No Accompanied by: Self / Same As Patient Allergies No Known Allergies [No Known Allergies*] Allergy (Verified 10/22/24 13:43) HPI HPI Lymphedema clinic: Details: Nora is presenting today for our lymphedema clinic. She continues with bilateral lower extremity swelling and discomfort. She continues to have wounds that are occurring on her legs. She has a new wound on her right lower extremity, which is shaped in the size of the bandage she used to cover it. She continues to endorse fluid weeping as well. 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 Daughter No problems noted. Social History Household Members: Family Housing: Other Alcohol intake: never Patient Tobacco Use Status: Former Tobacco user Tobacco use type: Cigarette Years Smoked: 25 years e-Cigarette/Vaping Use: Currently Using service: No Current occupational status: disabled Cognitive needs: No Hearing needs: No Vision needs: Yes Review of Systems Const Reports as per HPI and Denies weakness ENT Reports Normal hearing present and Denies dizziness Card Reports as per HPI, Denies chest pain, Denies chest pain at rest, Denies chest pain with activity, Denies dyspnea and Denies dyspnea on exertion Resp Reports as per HPI, Denies cough, Denies dyspnea and Denies dyspnea on exertion GI Reports as per HPI, Denies abdominal pain, Denies nausea and Denies vomiting Musc Denies numbness Skin/Breast Reports as per HPI, Denies erythema and Denies wounds Neuro Reports Normal hearing present, Denies dizziness, Denies numbness, Denies Sensory deficit (Neuro) and Denies weakness Psych Reports no additional complaints Endo Reports no additional complaints Physical Exam Vital Signs: BMI result Body Mass Index 35.9 Const General: healthy appearing and no acute distress Orientation/consciousness: patient oriented x3 HEENT Head: Yes normal to inspection Ears: hearing grossly normal bilaterally Mouth: Normal oral and palatal mucosa present Resp Effort & Inspection: normal respiratory effort and able to speak in complete sentences Auscultation: clear to auscultation bilaterally Cardio Jugular venous distension: no JVD Rate: regular rate Rhythm: regular rhythm Heart sounds: S1 normal heart sound present and S2 normal heart sound present Bruits: no abdominal aortic bruits, no carotid bruits, no femoral bruits and no renal bruits Peripheral pulses: Peripheral pulses 2+ throughout GI Inspection: Yes normal to inspection Palpation (GI): No Abdominal aortic bruit present Skin General skin exam: no rashes or lesions noted Wounds: no wounds Hair: normal Neuro General: patient oriented x3 Cranial nerves: Yes Normal hearing present Cognition (Neuro): normal cognition Gait exam (Neuro): Normal gait present Motor exam (neuro): 5/5 motor strength present throughout Sensory Exam: No Sensory deficit (Neuro) Extrem Other: Bilateral lower extremities: Discoloration noted from the tibial tuberosity to the tips of the toes, light erythematous. Some lymphorrhea noted bilaterally, clear serous fluid. Hyperkeratosis noted. Right lower extremity: medial aspect of the calf - square erythematous wound noted, in the area of a bandage. No bleeding noted. General: Yes normal to inspection, Yes full ROM, Yes capillary refill normal and Yes normal gait Assessment & Plan Assessment & Plan (1) Lymphedema: Code(s): I89.0 - Lymphedema, not elsewhere classified Category: Medical Plan: Nora is presenting today to be fitted for lymphedema pumps. They have had more than 3 months, starting before 06/01/24, of conservative treatments with elevation, compression stockings daily use with 20-30mmHg, and physical activity with minimal relief. They continue to have persistent symptoms, despite conservative treatments. They are presenting with hyperpigmentation, lymphorrhea, hyperkeratosis, and 2+ edema; they also continue with ongoing wounds that heal and return and have been treated multiple times over the last couple of years for cellulitis with multiple rounds of abx. They state both legs are bad and their is extension into their abdominal area. They also complains of pain and itchiness. It appears that they has stage II lymphedema. Juan Pablo from [employer] will be fitting them for a pneumatic compression device, which will get mailed to their house. The patient has lymphedema that extends to her upper thigh and abdominal region. The basic pneumatic compression device is not adequate for the patient; it is not clinically appropriate due to the extensive lymphedema extending into the upper thighs and abdomen. The advanced compression device will be the best in this case. Thank you allowing us to care for the patient. Coding Level of Care Code Est Pt Level 4 (66466) Diagnoses Lymphedema I89.0
--- OUTSIDE RECORDS SUMMARY | 2024-10-22 15:30 | XMS_ITS | Clinical Summary ---
Author Organization [facility] Address [address] [place] [address] Phone Care Team Providers Care Anesthesiology Teacher Name Role Phone Giuliano Villeda MD Primary Care Provider [phone] Medical History Medical History Date Comments Diabetes [...] to complete this topic Insurance Care Teams Anesthesiology Teacher Relationship Specialty Start Date End Date Giuliano Villeda MD [address] [place], [place] [phone] PCP - General Internal Medicine 06/03/15
--- OUTSIDE RECORDS SUMMARY | 2024-10-22 15:30 | XMS_ITS | Clinical Summary ---
Author Organization [facility] Address [address] [address] Care Team Providers Care Wheelchair Van Driver Name Role Phone Cal Aguillon MD Primary Care Provider [phone] Allergies No known active allergies Medications Aspirin [...] 08/22/2022 Dyslipidemia 08/22/2022 Chronic pain syndrome 08/22/2022 retirement use of methadone for pain management 0 [...] Influenza Vaccine (#1) 2024 06/15/[address] [place] [address] Care Teams Wheelchair Van Driver Relationship Specialty Start Date End Date Cal Aguillon MD [address] [place] [id number] PCP - General Internal Medicine 05/17/22
== END 2024-10-22 14:12 | disposition home or self-care (01) ==
LOC: HO.HVS 13:15
PROVIDERS: PCP Internal Medicine; Visit Provider Physician Assistant Surgical
DX: I89.0 Lymphedema, not elsewhere classified (principal)
CPT/HCPCS: 99214

== ENCOUNTER → 2024-10-22 13:14 | Outpatient (BNVA) | payer OTHER, SELFPAY | PROVIDERS: PCP Internal Medicine; Visit Provider Physician Assistant Surgical | DX: I89.0 Lymphedema, not elsewhere classified (principal) | CPT/HCPCS: 99212 ==

== ENCOUNTER 2024-10-24 10:16 | Outpatient (REF) | payer OTHER, SELFPAY ==
--- NOTE | ~2024-10-24 | US_ITS ---
EXAMINATION: US LOWER EXTREMITY VENOUS (REFLUX EXAM), BILATERAL CLINICAL INFORMATION: Varices COMPARISON: None. TECHNIQUE: Color flow triplex imaging and compression Doppler was performed to evaluate both the deep and the superficial systems bilaterally. To evaluate the superficial system, the examination was performed in the upright position. Color-flow Doppler ultrasound and compression ultrasound were utilized. In addition, maneuvers were utilized to demonstrate reflux. FINDINGS: 1. DEEP VENOUS ULTRASOUND OF THE RIGHT LOWER EXTREMITY: Common Femoral Vein: Compressible, normal respiratory variation and augmented flow. Femoral Vein: Compressible, normal color flow and augmentation. Popliteal Vein: Compressible, normal augmentation. Deep Reflux: There is no evidence of reflux in the deep system in either the common femoral vein, superficial femoral or the popliteal vein. There is no evidence of a Mcdonald's cyst. 2. SUPERFICIAL ULTRASOUND WITH DOPPLER OF RIGHT LOWER EXTREMITY: GREAT SAPHENOUS VEIN: Saphenofemoral Junction: 0.7 cm; Reflux: 0 ms Proximal Thigh: 0.7 cm; Reflux: 0 ms Mid Thigh: 0.4 cm; Reflux: 0 ms Distal Thigh: 0.4 cm; Reflux: 0 ms At Knee: 0.4 cm; Reflux: 0 ms Proximal Calf: 0.4 cm; Reflux: 0 ms Mid Calf: 0.3 cm; Reflux: 0 ms Distal Calf: 0.3 cm; Reflux: 0 ms DUPLICATED MEDIAL GREAT SAPHENOUS VEIN: Diameter: None imaged Reflux: NA DUPLICATED LATERAL GREAT SAPHENOUS VEIN: Diameter: 0.4 cm. Reflux: NA SMALL SAPHENOUS VEIN: Saphenopopliteal Junction: 0.2 cm; Reflux: 0 ms Proximal: 0.2 cm; Reflux: 0 ms Distal: 0.3 cm; Reflux: 0 ms VEIN OF GIACOMINI: Size: NA Reflux: NA PERFORATORS: Location: Proximal thigh, mid and distal calf. Size: 0.3 cm. Reflux: NA VARICOSITIES: Location: Great saphenous vein, mid thigh and distal calf. Size: 0.3 cm. Reflux: NA 3. DEEP VENOUS ULTRASOUND OF THE LEFT LOWER EXTREMITY: Common Femoral Vein: Compressible, normal respiratory variation and augmented flow. Femoral Vein: Compressible, normal color flow and augmentation. Popliteal Vein: Compressible, normal augmentation. Deep Reflux: There is no evidence of reflux in the deep system in either the common femoral vein, superficial femoral or the popliteal vein. There is no evidence of a Mcdonald's cyst. 4. SUPERFICIAL ULTRASOUND WITH DOPPLER OF LEFT LOWER EXTREMITY: GREAT SAPHENOUS VEIN: Saphenofemoral Junction: 0.9 cm; Reflux: 0 ms Proximal Thigh: 0.7 cm; Reflux: 0 ms Mid Thigh: 0.4 cm; Reflux: 0 ms Distal Thigh: 0.4 cm; Reflux: 0 ms At Knee: 0.4 cm; Reflux: 0 ms Proximal Calf: 0.3 cm; Reflux: 0 ms Mid Calf: 0.1 cm; Reflux: 0 ms Distal Calf: 0.3 cm; Reflux: 0 ms DUPLICATED MEDIAL GREAT SAPHENOUS VEIN: Diameter: None imaged Reflux: NA DUPLICATED LATERAL GREAT SAPHENOUS VEIN: Diameter: 0.5 cm. Reflux: NA SMALL SAPHENOUS VEIN: Saphenopopliteal Junction: 0.2 cm; Reflux: 0 ms Proximal: 0.2 cm; Reflux: 0 ms Distal: 0.3 cm; Reflux: 0 ms VEIN OF GIACOMINI: Size: NA Reflux: NA PERFORATORS: Location: Distal calf. Size: 0.3 cm. Reflux: NA VARICOSITIES: Location: Great saphenous vein, mid thigh, proximal and distal calf. Size: 0.3 cm. Reflux: NA US/US venous insuf bilat IMPRESSION: Right: No venous insufficiency. Perforators and varices without reflux. Left: No venous insufficiency. Perforators and varices without reflux. Electronically signed by: Jean Marie Thompson MD 10/27/2024 09:38 AM EDT
--- OUTSIDE RECORDS SUMMARY | 2024-10-24 11:36 | XMS_ITS | Clinical Summary ---
Author Organization [facility] Address [address] [address] Care Team Providers Care Pipe Line Walker Name Role Phone Cal Aguillon MD Primary Care Provider [phone] Allergies No known active allergies Medications Aspirin [...] 08/22/2022 Dyslipidemia 08/22/2022 Chronic pain syndrome 08/22/2022 residential use of methadone for pain management 0 [...] Influenza Vaccine (#1) 2024 06/15/[address] [place] [address] Care Teams Pipe Line Walker Relationship Specialty Start Date End Date Cal Aguillon MD [address] [place] [id number] PCP - General Internal Medicine 05/17/22
--- OUTSIDE RECORDS SUMMARY | 2024-10-24 11:36 | XMS_ITS | Clinical Summary ---
Author Organization [facility] Address [address] [place] [address] Phone Care Team Providers Care Director Of Estate Name Role Phone Giuliano Villeda MD Primary Care Provider [phone] Medical History Medical History Date Comments Diabetes [...] to complete this topic Insurance Care Teams Director Of Estate Relationship Specialty Start Date End Date Giuliano Villeda MD [address] [place], [place] [phone] PCP - General Internal Medicine 06/03/15
== END 2024-10-24 10:17 | disposition home or self-care (01) ==
LOC: HO.US 10:16
PROVIDERS: PCP Internal Medicine; Visit Provider Physician Assistant Surgical
DX: I83.11 Varicose veins of right lower extremity with inflammation (principal); I83.12 Varicose veins of left lower extremity with inflammation
CPT/HCPCS: 93970

== ENCOUNTER → 2024-10-24 10:18 | Outpatient (BNV) | payer OTHER, SELFPAY | PROVIDERS: PCP Internal Medicine; Visit Provider Radiology Diagnostic Radiology | DX: I86.8 Varicose veins of other specified sites (principal) | CPT/HCPCS: 93970 ==

== ENCOUNTER 2024-10-29 08:49 | Outpatient (AMB) | payer OTHER, SELFPAY ==
--- NOTE | 2024-10-29 08:50 | A.OFFVIS_ITS ---
Vital Signs 10/29/24 08:52 Height 5 ft 4 in Weight 207 lb 3.752 oz BMI 35.6 BP 138/84 Blood Pressure Location Rt brachial Position Sitting Pulse 94 Pulse Source Pulse Oximeter Pulse Oximetry (%) 97 Oxygen Delivery Method Room Air Intake Visit Reasons: DM Intake Note: Patient presents today for a follow-up on Type 2 Diabetes Mellitus: Last Diabetic eye exam was on: DUE Last Podiatry exam was on: Patient does not see a Toll Testboard Worker Most recent HbA1c: 8.1%, 10/29/2024 Random Glucose- 213 mg/dL, Today Dust Box Worker Required: No Accompanied by: Self / Same As Patient Allergies No Known Allergies [No Known Allergies*] Allergy (Verified 10/29/24 08:52) Medication List - Last Reconciled 10/29/24 by Marlee Rolon MD aspirin (Adult Low Dose Aspirin) 81 mg PO DAILY atorvastatin 80 mg PO BEDTIME blood sugar diagnostic (FreeStyle Lite Strips) test blood sugar twice a day blood-glucose meter (FreeStyle Lite Meter kit) test four times a day cholecalciferol (vitamin D3) 25 mcg PO DAILY 90 days flash glucose scanning reader (FreeStyle Kera 2 Hewitt) As directed flash glucose sensor (FreeStyle Kera 2 Sensor kit) DIRECTED EVERY 2 WEEKS furosemide 20 mg PO DAILY PRN insulin degludec (Tresiba FlexTouch U-100 insulin) 50 units (0.5 mL) subcut BEDTIME lancets (FreeStyle Lancets) use to check blood sugar twice a day lancets (TRUEplus Lancets) 4 times a day levothyroxine 50 mcg PO DAILY metoprolol succinate ER 100 mg PO DAILY Mounjaro (tirzepatide) 10 mg (0.5 mL) subcut QWEEK NS omeprazole 40 mg PO DAILY pen needle, diabetic (BD Pamela 2nd Gen Pen Needle) As directed 4 times a day pioglitazone 15 mg PO DAILY HPI Comments Details: Patient is a 58-year-old female with DM type 2 who presents for management of diabetes. Past medical history: DM2, HTN, HLD, methadone, hypothyriod, SVT Micro and macrovascular complications:neuropathy Diabetes medications: -Mounjaro 10 mg Qwkly -Actos 15 mg QD -Tresiba 50 units -Humalog just for correction POC A1C today is 8.1 % <9.4<9.2<11.7 Kera download low usage -average 208 with NA GMI%. No hypoglycemia Hypoglycemia: No interval Hyperglycemia: + urinary frequency, denies nocturia, + polydypsia Exercise: lives on 4th floor, walking Community Engagement Coordinator - CDE education: denies Last dental exam: dentures Last ophthalmology evaluation: needs to make appt ROS CONSTITUTIONAL: Denies weight loss, fever and chills. HEENT: Denies changes in vision and hearing. RESPIRATORY: Denies SOB and cough. CV: Denies palpitations and CP GI: Denies abdominal pain, nausea, vomiting and diarrhea. : Denies dysuria and urinary frequency. MSK: Denies new myalgia and joint pain. SKIN: Denies rash and pruritus. NEUROLOGICAL: Denies headache PSYCHIATRIC: Denies recent changes in mood. PHYSICAL EXAM: GENERAL: Alert and oriented x 3. NAD EYES: EOMI. Anicteric. HENT: Moist mucous membranes. No scleral icterus. No cervical lymphadenopathy. LUNGS: Clear to auscultation bilaterally. CARDIOVASCULAR: Regular rate and rhythm. No murmur. No JVD. ABDOMEN: Soft, non-tender +bs EXTREMITIES: No edema. Non-tender. SKIN: No rashes or lesions. Warm. NEUROLOGIC: No focal neurological deficits. CN II-XII grossly intact PSYCHIATRIC: Cooperative. Appropriate mood and affect [facility] Medical History Hypothyroidism Vitamin D deficiency Hyperlipidemia LDL goal <100 Type 2 diabetes mellitus with hyperglycemia Uncontrolled diabetes mellitus Methadone dependence [facility] (current) use of insulin Chronic GERD Lipid disorder Hypertension, essential Surgical History Hx of mammogram Hx of cholecystectomy History of elbow surgery Family History Father Diabetes Mother Diabetes Brother Diabetes Brother No problems noted. Daughter No problems noted. Social History Household Members: Family Housing: Other Alcohol intake: never Patient Tobacco Use Status: Former Tobacco user Tobacco use type: Cigarette Years Smoked: 25 years e-Cigarette/Vaping Use: Currently Using service: No Current occupational status: disabled Cognitive needs: No Hearing needs: No Vision needs: Yes Physical Exam Vital Signs: Last Vital Signs Pulse 94 10/29/24 08:52 BP 138/84 10/29/24 08:52 Pulse Ox 97 10/29/24 08:52 Oxygen Delivery Method Room Air 10/29/24 08:52 BMI result Body Mass Index 35.6 Results AMB Hemoglobin A1c AMB Hemoglobin A1c 8.1 % Last Edit by RED Caldwell on 10/29/24 09:09 Assessment & Plan Assessment & Plan (1) Type 2 diabetes mellitus with hyperglycemia: Code(s): E11.65 - Type 2 diabetes mellitus with hyperglycemia Category: Medical Qualifiers: Diabetes mellitus terminal superintendent insulin use: with senior living use Qualified Code(s): E11.65 - Type 2 diabetes mellitus with hyperglycemia; Z79.4 - [facility] (current) use of insulin Plan: Improving control Increase mounjaro to 12.5. continue other diabetic medications at current doses Annual eye exam Rule of 15s reviewed (2) Hypothyroidism: Code(s): E03.9 - Hypothyroidism, unspecified Category: Medical Qualifiers: Hypothyroidism type: unspecified Qualified Code(s): E03.9 - Hypothyroidism, unspecified Plan: Last TSH (at [facility]) 10. increase levothyroxine to 75mcg daily. Recheck with full labs 3 months Orders: Orders AMB Hemoglobin A1c Today E11.69 - Type 2 diabetes mellitus with other specified complication, E66.9 - Obesity, unspecified Hemoglobin A1c 10 Weeks E03.9 - Hypothyroidism, unspecified, E11.65 - Type 2 diabetes mellitus with hyperglycemia TSH reflex Free T4 10 Weeks E03.9 - Hypothyroidism, unspecified, E11.65 - Type 2 diabetes mellitus with hyperglycemia Lipid Panel 10 Weeks E03.9 - Hypothyroidism, unspecified, E11.65 - Type 2 diabetes mellitus with hyperglycemia Comprehensive Met. Panel 10 Weeks E03.9 - Hypothyroidism, unspecified, E11.65 - Type 2 diabetes mellitus with hyperglycemia Microalbumin, Random (w Creat) 10 Weeks E03.9 - Hypothyroidism, unspecified, E11.65 - Type 2 diabetes mellitus with hyperglycemia Medications: New levothyroxine 75 mcg PO DAILY 90 tabs 3RF Mounjaro (tirzepatide) 12.5 mg (0.5 mL) subcut QWEEK 6 mL 3RF NS E11.69 - Type 2 diabetes mellitus with other specified complication, E66.9 - Obesity, uns pecified Changed From insulin degludec (Tresiba FlexTouch U-100 insulin) 80 units (0.8 mL) subcut BEDTIME 30 mL 5RF E11.65 - Type 2 diabetes mellitus with hyperglycemia To insulin degludec (Tresiba FlexTouch U-100 insulin) 50 units (0.5 mL) subcut BEDTIME 30 mL 5RF E11.65 - Type 2 diabetes mellitus with hyperglycemia Discontinued Mounjaro (tirzepatide) Discontinued Reason: Doctor's Order 10 mg (0.5 mL) subcut QWEEK 6 mL 3RF NS E11.69 - Type 2 diabetes mellitus with other specified complication, E66.9 - Obesity, unspecified levothyroxine Discontinued Reason: Doctor's Order 50 mcg PO DAILY 90 tabs 3RF E03.9 - Hypothyroidism, unspecified Coding Level of Care Code Est Pt Level 4 (89106) Diagnoses Type 2 diabetes mellitus with hyperglycemia, with long-term current use of insulin E11.65; Z79.4 Diabetes mellitus terminal superintendent insulin use: with terminal superintendent use Hypothyroidism, unspecified type E03.9 Hypothyroidism type: unspecified
[2024-10-29 08:52] VITALS: BP 138/84; PULSE 94; O2SAT 97; BMI 35.6
[2024-10-29 09:02] LABS: Glucose, Whole Blood 213 mg/dL (60-115)
--- OUTSIDE RECORDS SUMMARY | 2024-10-29 09:43 | XMS_ITS | Clinical Summary ---
Author Organization [facility] Address [address] [place] [address] Phone Care Team Providers Care Community Outreach Coordinator Name Role Phone Giuliano Villeda MD Primary Care Provider [phone] Medical History Medical History Date Comments Diabetes [...] to complete this topic Insurance Care Teams Community Outreach Coordinator Relationship Specialty Start Date End Date Giuliano Villeda MD [address] [place], [place] [phone] PCP - General Internal Medicine 06/03/15
--- OUTSIDE RECORDS SUMMARY | 2024-10-29 09:43 | XMS_ITS | Clinical Summary ---
Author Organization [facility] Address [address] [address] Care Team Providers Care Area Development Consultant Name Role Phone Cal Aguillon MD Primary Care Provider [phone] Allergies No known active allergies Medications Aspirin [...] Influenza Vaccine (#1) 2024 06/15/[address] [place] [address] Care Teams Area Development Consultant Relationship Specialty Start Date End Date Cal Aguillon MD [address] [place] [id number] PCP - General Internal Medicine 05/17/22
== END 2024-10-29 09:20 | disposition home or self-care (01) ==
LOC: HO.ENCR 08:50
PROVIDERS: PCP Internal Medicine; Visit Provider Internal Medicine
DX: E11.65 Type 2 diabetes mellitus with hyperglycemia (principal); Z79.4 Long term (current) use of insulin; E03.9 Hypothyroidism, unspecified; E11.69 Type 2 diabetes mellitus with other specified complication; E66.9 Obesity, unspecified

== ENCOUNTER → 2024-10-29 08:49 | Outpatient (BNVA) | payer OTHER, SELFPAY | PROVIDERS: PCP Internal Medicine; Visit Provider Internal Medicine | DX: E11.65 Type 2 diabetes mellitus with hyperglycemia (principal); E03.9 Hypothyroidism, unspecified; Z79.4 Long term (current) use of insulin | CPT/HCPCS: 82947; 83036; 99212 ==

== ENCOUNTER 2025-01-23 10:25 | Outpatient (REF) | payer OTHER, SELFPAY ==
--- OUTSIDE RECORDS SUMMARY | 2025-01-23 11:25 | XMS_ITS | Clinical Summary ---
Author Organization [facility] Address [address] [place] [address] Phone Care Team Providers Care Diamond Cleaner Name Role Phone Giuliano Villeda MD Primary Care Provider [phone] Medical History Medical History Date Comments Diabetes mellitus type 2, co ntrolled, with complications (CMS/HCC V24, CMS/HCC V28) DX:Diabetes mellitus type 2, controlled, with complications [...] 2016 COVID-19 Vaccine (2023-2 5 season) 2024 Colorectal Cancer Screening: Colonoscopy 06/07/2024 Depression Screening 06/07/2024 HIV Screening 06/07/2024 Hepatitis C Screening 06/07/2024 Social Influencers of Health Screening 06/07/2024 Influenza Vaccine (Season Ended) 2025 HIB Vaccines Aged Out No longer eligi [...] age to complete this topic Meningococcal B Vaccine Aged Out No l onger eligible based on patient's age to complete this topic RSV Immunization Patients Un tasia 20 months Aged Out No longer eligible b ased on patient's age to complete this topic Varicella Vaccines Aged Out No longer eligible based on patient's age to complete this topic Insurance Care Teams Diamond Cleaner Relationship Specialty Start Date End Date Giuliano Villeda MD [address] [place] [address] PCP - General Internal Medicine 06/03/15
[2025-01-23 12:29] LABS: Estimated Average Glucose 258 mg/dL; Hemoglobin A1c % 10.6 % (<6.0)
[2025-01-23 13:05] LABS: Alanine Aminotransferase 15 U/L (0-31); Albumin Level 3.7 g/dL (3.5-5.0); Alkaline Phosphatase 116 U/L (39-117); Anion Gap 13 (12-20); Aspartate Amino Transferase 26 U/L (5-31); Bilirubin Total 0.2 mg/dL (0.0-1.0); Blood Urea Nitrogen 20 mg/dL (9-16); Carbon Dioxide 27 mmol/L (22-29); Chloride 98 mmol/L (96-108); Cholesterol 219 mg/dL (<200); Estimated Glomerular Filt Rate 56; Glucose Random 336 mg/dL (60-115); HDL Cholesterol 36 mg/dL (>40); Potassium 4.1 mmol/L (3.3-5.1); Sodium 134 mmol/L (135-145); Triglycerides 471 mg/dL (<150)
[2025-01-23 13:07] LABS: TSH reflex Free T4 7.59 uIU/mL (0.32-4.0)
[2025-01-23 14:13] LABS: Free T4 (Free Thyroxine) 0.97 ng/dL (0.71-1.85)
[2025-01-23 14:15] LABS: Microalbum/Creatinine Ratio Ur 29.9 ug/mg cr (<30)
[2025-01-24 06:54] LABS: Lyme Abs Screen <0.90 index
== END 2025-01-23 10:26 | disposition home or self-care (01) ==
LOC: HO.LAB 10:25
PROVIDERS: PCP Internal Medicine; Visit Provider Internal Medicine
DX: R21 Rash and other nonspecific skin eruption (principal); E11.65 Type 2 diabetes mellitus with hyperglycemia; E03.9 Hypothyroidism, unspecified
CPT/HCPCS: 36415; 80053; 80061; 82043; 82570; 83036; 84439; 84443; 86617; 86618

== ENCOUNTER 2025-02-04 10:56 | Outpatient (AMB) | payer OTHER, SELFPAY ==
[2025-02-04 10:59] VITALS: BP 187/72; PULSE 91; O2SAT 97; BMI 35.6
--- NOTE | 2025-02-04 10:59 | A.OFFVIS_ITS ---
Vital Signs 02/04/25 10:59 02/04/25 11:04 Height 5 ft 4 in Weight 207 lb 3.752 oz BMI 35.6 BP 187/72 H 194/84 H Blood Pressure Location Rt brachial Lt brachial Position Sitting Sitting Pulse 91 Pulse Source Pulse Oximeter Pulse Oximetry (%) 97 Oxygen Delivery Method Room Air Intake Visit Reasons: DM Intake Note: Patient presents today for a follow-up on Type 2 Diabetes Mellitus: Last Diabetic eye exam was on: DUE Last Podiatry exam was on: Patient does not see a Creative Arts Music Therapist Most recent HbA1c: 10.6%, 01/28/2025 Random Glucose: 322 mg/dL Accompanied by: Self / Same As Patient Allergies metformin Adverse Reaction (Intermediate, Verified 02/04/25 11:42) Abdominal Pain HPI Comments Details: Patient is a 58-year-old female with DM type 2 who presents for management of diabetes. Past medical history: DM2, HTN, HLD, methadone, hypothyriod, SVT s/p ablation Micro and macrovascular complications:neuropathy Blood pressure has been uncontrolled. She is currently on metoprolol 100mg. She already took this today. She is willing to start additional medication Diabetes medications: -Had much iimproved glycemic control with mounjaro then insurance stopped coverage so has not been on -Actos 15 mg QD -Tresiba 50 units -Humalog just for correction Intolerant -GI side effects with metformin Patient was previously on Trulicity with continued hyperglycemia Recent A1C is 10.6 up from 8.1 without the mounjaro. Previously 9.4<9.2<11.7 Hypoglycemia: No interval Hyperglycemia: + urinary frequency, denies nocturia, + polydypsia Exercise: lives on 4th floor, walking Ux Ui Designer - CDE education: denies Last dental exam: dentures Last ophthalmology evaluation: needs to make appt ROS CONSTITUTIONAL: Denies weight loss, fever and chills. HEENT: Denies changes in vision and hearing. RESPIRATORY: Denies SOB and cough. CV: Denies palpitations and CP GI: Denies abdominal pain, nausea, vomiting and diarrhea. : Denies dysuria and urinary frequency. MSK: Denies new myalgia and joint pain. SKIN: Denies rash and pruritus. NEUROLOGICAL: Denies headache PSYCHIATRIC: Denies recent changes in mood. PHYSICAL EXAM: GENERAL: Alert and oriented x 3. NAD EYES: EOMI. Anicteric. HENT: Moist mucous membranes. No scleral icterus. No cervical lymphadenopathy. LUNGS: Clear to auscultation bilaterally. CARDIOVASCULAR: Regular rate and rhythm. No murmur. No JVD. ABDOMEN: Soft, non-tender +bs EXTREMITIES: No edema. Non-tender. SKIN: No rashes or lesions. Warm. NEUROLOGIC: No focal neurological deficits. CN II-XII grossly intact PSYCHIATRIC: Cooperative. Appropriate mood and affect [facility] Medical History Hypothyroidism Vitamin D deficiency Hyperlipidemia LDL goal <100 Type 2 diabetes mellitus with hyperglycemia Uncontrolled diabetes mellitus Methadone dependence nursing home (current) use of insulin Chronic GERD Lipid disorder Hypertension, essential Surgical History Hx of mammogram Hx of cholecystectomy History of elbow surgery Family History Father Diabetes Mother Diabetes Brother Diabetes Brother No problems noted. Daughter No problems noted. Social History Household Members: Family Housing: Other Alcohol intake: never Patient Tobacco Use Status: Former Tobacco user Tobacco use type: Cigarette Years Smoked: 25 years e-Cigarette/Vaping Use: Currently Using service: No Current occupational status: disabled Cognitive needs: No Hearing needs: No Vision needs: Yes Physical Exam Vital Signs: Last Vital Signs Pulse 91 02/04/25 10:59 BP 194/84 H 02/04/25 11:04 Pulse Ox 97 02/04/25 10:59 Oxygen Delivery Method Room Air 02/04/25 10:59 BMI result Body Mass Index 35.6 Results Reviewed Results Reviewed: Laboratory Last Values Glucose (Clinic) 322 mg/dL (60-115) H 06/25/25 11:05 Assessment & Plan Assessment & Plan (1) Type 2 diabetes mellitus with hyperglycemia: Code(s): E11.65 - Type 2 diabetes mellitus with hyperglycemia Category: Medical Qualifiers: Diabetes mellitus watermaster insulin use: with watermaster use Qualified Code(s): E11.65 - Type 2 diabetes mellitus with hyperglycemia; Z79.4 - parts counterman (current) use of insulin (2) Hypothyroidism: Code(s): E03.9 - Hypothyroidism, unspecified Category: Medical Qualifiers: Hypothyroidism type: unspecified Qualified Code(s): E03.9 - Hypothyroidism, unspecified Plan DM2 uncontrolled She was doing excellent on mounjaro and we hope to restart this medication. She has been intolerant to metformin and failed trulicity in the past She can increase actos to 30mg daily. She will increase tresiba to 60u Levothyroxine increase to 88mcg Start losartan 50mg daily Return in one month Medications: New pioglitazone 30 mg PO DAILY 90 tabs 3RF losartan 50 mg PO DAILY 90 tabs 3RF levothyroxine (Synthroid) 88 mcg PO DAILY 90 tabs 3RF Refilled Mounjaro (tirzepatide) 12.5 mg (0.5 mL) subcut QWEEK 6 mL 3RF NS E11.69 - Type 2 diabetes mellitus with other specified complication, E66.9 - Obesity, unspecified Discontinued pioglitazone Discontinued Reason: Doctor's Order 15 mg PO DAILY 90 tabs 3RF levothyroxine Discontinued Reason: Doctor's Order 75 mcg PO DAILY 90 tabs 3RF Coding Level of Care Code Est Pt Level 4 (64742) Diagnoses Type 2 diabetes mellitus with hyperglycemia, with long-term current use of insulin E11.65; Z79.4 Diabetes mellitus watermaster insulin use: with senior living use Hypothyroidism, unspecified type E03.9 Hypothyroidism type: unspecified
[2025-02-04 11:04] VITALS: BP 194/84
[2025-02-04 11:09] LABS: Glucose, Whole Blood 322 mg/dL (60-115)
--- OUTSIDE RECORDS SUMMARY | 2025-02-04 12:55 | XMS_ITS | Clinical Summary ---
Author Organization [facility] Address [address] [place] [address] Phone Care Team Providers Care International Sales Manager Name Role Phone Giuliano Villeda MD Primary Care Provider [phone] Medical History Medical History Date Comments Diabetes [...] to complete this topic Insurance Care Teams International Sales Manager Relationship Specialty Start Date End Date Giuliano Villeda MD [address] [place] [address] PCP - General Internal Medicine 06/03/15
== END 2025-02-04 11:18 | disposition home or self-care (01) ==
LOC: HO.ENCR 10:57
PROVIDERS: PCP Internal Medicine; Visit Provider Internal Medicine
DX: E11.65 Type 2 diabetes mellitus with hyperglycemia (principal); Z79.4 Long term (current) use of insulin; E03.9 Hypothyroidism, unspecified

== ENCOUNTER → 2025-02-04 10:56 | Outpatient (BNVA) | payer OTHER, SELFPAY | PROVIDERS: PCP Internal Medicine; Visit Provider Internal Medicine | DX: E11.65 Type 2 diabetes mellitus with hyperglycemia (principal); Z79.4 Long term (current) use of insulin | CPT/HCPCS: 82947; 99212 ==

== ENCOUNTER 2025-03-11 15:16 | Outpatient (AMB) | payer OTHER, SELFPAY ==
--- NOTE | 2025-03-11 15:24 | A.OFFVIS_ITS ---
Vital Signs 03/11/25 15:25 Height 5 ft 4 in Weight 211 lb 10.3 oz BMI 36.3 BP 132/70 Blood Pressure Location Rt brachial Position Sitting Pulse 85 Pulse Source Pulse Oximeter Pulse Oximetry (%) 95 Oxygen Delivery Method Room Air Intake Visit Reasons: DM Intake Note: Patient presents today for a follow-up on Type 2 Diabetes Mellitus: Last Diabetic eye exam was on: Patient [facility], another referral will be send Last Podiatry exam was on: Patient does not see a Emergency Spill Response Technician Most recent HbA1c: 10.6%, 01/23/2025 Random Glucose: 192 mg/dL Magnetizer Required: No Accompanied by: Self / Same As Patient Allergies metformin Adverse Reaction (Intermediate, Verified 03/11/25 15:26) Abdominal Pain Medication List - Last Reconciled 03/11/25 by Marlee Rolon MD aspirin (Adult Low Dose Aspirin) 81 mg PO DAILY atorvastatin 80 mg PO BEDTIME blood sugar diagnostic (FreeStyle Lite Strips) test blood sugar twice a day blood-glucose meter (FreeStyle Lite Meter kit) test four times a day cholecalciferol (vitamin D3) 25 mcg PO DAILY 90 days furosemide 20 mg PO DAILY PRN insulin degludec (Tresiba FlexTouch U-100 insulin) 66 units (0.66 mL) subcut BEDTIME insulin lispro 14 - 26 units subcut TID lancets (FreeStyle Lancets) use to check blood sugar twice a day levothyroxine (Synthroid) 88 mcg PO DAILY losartan 50 mg PO DAILY metoprolol succinate ER 100 mg PO DAILY omeprazole 40 mg PO DAILY pen needle, diabetic (BD Pamela 2nd Gen Pen Needle) As directed 4 times a day pioglitazone 30 mg PO DAILY Trulicity (dulaglutide) 1.5 mg (0.5 mL) subcut QWEEK NS HPI Comments Details: Patient is a 58-year-old female with DM type 2 who presents for management of diabetes. Past medical history: DM2, HTN, HLD, methadone, hypothyriod, SVT s/p ablation Micro and macrovascular complications:neuropathy Diabetes medications: -Had much improved glycemic control with mounjaro then insurance stopped coverage so has not been on. Her glucose has increased markedly since she has been off the medication. She will have to return to [facility] which she has been on in the past without optimal glycemic control -Actos 30 mg QD -Tresiba 60 units (increase to 66 today) -Humalog Intolerant -GI side effects with metformin Patient was previously on Trulicity with continued hyperglycemia Recent A1C is 10.6 up from 8.1 without the mounjaro. Previously 9.4<9.2<11.7. CGM reviewed high 90% of time tgt 10%. 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 HEENT: Denies changes in vision and hearing. RESPIRATORY: Denies SOB and cough. CV: Denies palpitations and CP GI: Denies abdominal pain, nausea, vomiting and diarrhea. : Denies dysuria and urinary frequency. MSK: Denies new myalgia and joint pain. SKIN: Denies rash and pruritus. NEUROLOGICAL: Denies headache PSYCHIATRIC: Denies recent changes in mood. PHYSICAL EXAM: GENERAL: Alert and oriented x 3. NAD EYES: EOMI. Anicteric. HENT: Moist mucous membranes. No scleral icterus. No cervical lymphadenopathy. LUNGS: Clear to auscultation bilaterally. CARDIOVASCULAR: Regular rate and rhythm. No murmur. No JVD. ABDOMEN: Soft, non-tender +bs EXTREMITIES: No edema. Non-tender. SKIN: No rashes or lesions. Warm. NEUROLOGIC: No focal neurological deficits. CN II-XII grossly intact PSYCHIATRIC: Cooperative. Appropriate mood and affect [facility] Medical History Hypothyroidism Vitamin D deficiency Hyperlipidemia LDL goal <100 Type 2 diabetes mellitus with hyperglycemia Uncontrolled diabetes mellitus Methadone dependence senior care (current) use of insulin Chronic GERD Lipid disorder Hypertension, essential Surgical History (Updated 03/11/25 @ 15:27 by RED Caldwell) History of cardiac ablation for atrial fibrillation Hx of mammogram Hx of cholecystectomy History of elbow surgery Family History Father Diabetes Mother Diabetes Brother Diabetes Brother No problems noted. Daughter No problems noted. Social History Household Members: Family Housing: Other Alcohol intake: never Patient Tobacco Use Status: Former Tobacco user Tobacco use type: Cigarette Years Smoked: 25 years e-Cigarette/Vaping Use: Currently Using service: No Current occupational status: disabled Cognitive needs: No Hearing needs: No Vision needs: Yes Physical Exam Vital Signs: Last Vital Signs Pulse 85 03/11/25 15:25 BP 132/70 03/11/25 15:25 Pulse Ox 95 03/11/25 15:25 Oxygen Delivery Method Room Air 03/11/25 15:25 BMI result Body Mass Index 36.3 Results Reviewed Results Reviewed: Laboratory Last Values Glucose (Clinic) 192 mg/dL (60-115) H 03/11/25 15:32 Assessment & Plan Assessment & Plan (1) Uncontrolled diabetes mellitus: Code(s): E11.65 - Type 2 diabetes mellitus with hyperglycemia Category: Medical Qualifiers: Diabetes mellitus type: type 2 Glycemic state: with hyperglycemia Qualified Code(s): E11.65 - Type 2 diabetes mellitus with hyperglycemia Plan Diabetes-uncontrolled since mounjaro stopped due to insurance not covering. Will have to restart trulicity Increase tresiba to 66 units Lispro ordered Close follow up. 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 Medications: New Trulicity (dulaglutide) 1.5 mg (0.5 mL) subcut QWEEK 6 mL 3RF NS insulin lispro Max 78 units/24 hours 14 - 26 units (0.14 - 0.26 mL) subcut TID 30 mL 3RF Changed From insulin degludec (Tresiba FlexTouch U-100 insulin) 50 units (0.5 mL) subcut BEDTIME 30 mL 5RF E11.65 - Type 2 diabetes mellitus with hyperglycemia To insulin degludec (Tresiba FlexTouch U-100 insulin) 66 units (0.66 mL) subcut BEDTIME 30 mL 5RF E11.65 - Type 2 diabetes mellitus with hyperglycemia Discontinued Mounjaro (tirzepatide) Discontinued Reason: Duplicate 12.5 mg (0.5 mL) subcut QWEEK 6 mL 3RF NS E11.69 - Type 2 diabetes mellitus with other specified complication, E66.9 - Obesity, unspecified Coding Level of Care Code Est Pt Level 4 (01771) Diagnoses Uncontrolled type 2 diabetes mellitus with hyperglycemia E11.65 Diabetes mellitus type: type 2 Glycemic state: with hyperglycemia
[2025-03-11 15:25] VITALS: BP 132/70; PULSE 85; O2SAT 95; BMI 36.3
[2025-03-11 15:36] LABS: Glucose, Whole Blood 192 mg/dL (60-115)
--- OUTSIDE RECORDS SUMMARY | 2025-03-11 15:58 | XMS_ITS | Clinical Summary ---
Author Organization [facility] Address [address] [place] [address] Phone Care Team Providers Care Buffet Server Name Role Phone Giuliano Villeda MD Primary Care Provider [phone] Medical History Medical History Date Comments Diabetes [...] ars (1 of 2 - PCV) 1985 Cervical Cancer Screening: P ap Smear 10/25/1987 Zoster Vaccines (1 of 2) 2016 COVID-19 Vaccine (2023-2 5 season) 2024 Colorectal Cancer Screening: Colonoscopy 06/07/2024 HIV Screening 06/07/2024 Hepatitis C Screening 06/07/2024 Social Influencers of Health Screening 06/07/2024 Depression Screening 08/13/2024 Influenza Vaccine (#1) 2025 HIB Vaccines Aged Out No longer [...] to complete this topic Insurance Care Teams Buffet Server Relationship Specialty Start Date End Date Giuliano Villeda MD [address], [place] [id number] PCP - General Internal Medicine 06/03/15
--- OUTSIDE RECORDS SUMMARY | 2025-03-11 15:58 | XMS_ITS | Clinical Summary ---
Author Organization [facility] Address [address] [address] Care Team Providers Care Turpentine Distiller Name Role Phone Cal Aguillon MD Primary Care Provider [phone] Allergies No known active allergies Medications Aspirin [...] 08/22/2022 Dyslipidemia 08/22/2022 Chronic pain syndrome 08/22/2022 snf use of methadone for pain management 0 08/22/2022 Resolved Problems Problem Noted Date Diagnosed Date Resolved Date Insomnia 11/27/2023 11/28/2023 Immunizations Immunization Administration Dates Next Due Influenza, Unspecified 06/15/2007 [...] Last Done Comments Breast Cancer Screening 1966 Hepatitis B Vaccine (1 of 3 - 19+ 3-dose series) 10/24 Pneumococcal Vaccine: 50+ Years (1 of 2 - PCV) 986 Colorectal Cancer Screening: Annual FOBT 10/25/2015 Colorectal Cancer Screening: Colonoscopy 10/25/2015 Colorectal Cancer Screening: Sigmoidoscopy 10/25/2015 Diabetes: Hemoglobin A1C 05/18/2022 Diabetes: Ophthalmology Exam 05/18/2022 Diabetes: Pedal Pulse Checked 05/18/2022 Diabetes: Sensory Foot Exam 05/18/2022 Diabetes: Visual Foot Exam 05/18/2022 Influenza Vaccine (#1) 2025 06/15/[address] [place] [address] [place] [address] Care Teams Turpentine Distiller Relationship Specialty Start Date End Date Cal Aguillon MD [address] [place] [address] PCP - General Internal Medicine 05/17/22
== END 2025-03-11 15:46 | disposition home or self-care (01) ==
LOC: HO.ENCR 15:16
PROVIDERS: PCP Internal Medicine; Visit Provider Internal Medicine
DX: E11.65 Type 2 diabetes mellitus with hyperglycemia (principal)

== ENCOUNTER → 2025-03-11 15:16 | Outpatient (BNVA) | payer OTHER, SELFPAY | PROVIDERS: PCP Internal Medicine; Visit Provider Internal Medicine | DX: E11.65 Type 2 diabetes mellitus with hyperglycemia (principal); Z79.4 Long term (current) use of insulin; E66.9 Obesity, unspecified | CPT/HCPCS: 82947; 99212 ==

== ENCOUNTER 2025-05-14 13:00 | Outpatient (AMB) | payer OTHER, SELFPAY ==
--- NOTE | 2025-05-14 13:01 | A.OFFVIS_ITS ---
Vital Signs 05/14/25 13:04 Height 5 ft 4 in Weight 211 lb 10.3 oz BMI 36.3 BP 142/76 H Blood Pressure Location Rt brachial Position Sitting Pulse 103 H Pulse Source Pulse Oximeter Pulse Oximetry (%) 96 Oxygen Delivery Method Room Air Intake Visit Reasons: DM Intake Note: Patient presents today for a follow-up on Type 2 Diabetes Mellitus: Last Diabetic eye exam was on: Pending Appt, patient will be calling to make the appt. Last Podiatry exam was on: Patient does not see a Software Quality Assurance Specialist Most recent HbA1c: 10.1%, 05/14/2025 Random Glucose: 461 mg/dL Foster Care Social Worker Required: No Accompanied by: Self / Same As Patient Allergies metformin Adverse Reaction (Intermediate, Verified 05/14/25 13:03) Abdominal Pain HPI Comments Details: Patient is a 58-year-old female with DM type 2 who presents for management of diabetes. Past medical history: DM2, HTN, HLD, methadone, hypothyriod, SVT s/p ablation Micro and macrovascular complications:neuropathy Diabetes medications: -Had much improved glycemic control with mounjaro then insurance stopped coverage so has not been on. Her glucose has increased markedly since she has been off the medication. She returned to [facility] 2 months ago -Actos 30 mg QD -Tresiba 66 units -Humalog 14 -[facility] 1.5 weekly Intolerant -GI side effects with metformin POC A1C is 10.1 from 10.6 up previously 8.1 on mounjaro. Hypoglycemia: No interval Hyperglycemia: + urinary frequency, denies nocturia, + polydypsia Exercise: lives on 4th floor, walking Clinical Nurse Manager - CDE education: denies Last dental exam: dentures Last ophthalmology evaluation: needs to make appt On ARB, statin TSH elevated after which levothyroxine increased to 88mcg. Due for recheck ROS CONSTITUTIONAL: Denies weight loss, fever and chills. HEENT: Denies changes in vision and hearing. RESPIRATORY: Denies SOB and cough. CV: Denies palpitations and CP GI: Denies abdominal pain, nausea, vomiting and diarrhea. : Denies dysuria and urinary frequency. MSK: Denies new myalgia and joint pain. SKIN: Denies rash and pruritus. NEUROLOGICAL: Denies headache PSYCHIATRIC: Denies recent changes in mood. PHYSICAL EXAM: GENERAL: Alert and oriented x 3. NAD EYES: EOMI. Anicteric. HENT: Moist mucous membranes. No scleral icterus. No cervical lymphadenopathy. LUNGS: Clear to auscultation bilaterally. CARDIOVASCULAR: Regular rate and rhythm. No murmur. No JVD. ABDOMEN: Soft, non-tender +bs EXTREMITIES: No edema. Non-tender. SKIN: No rashes or lesions. Warm. NEUROLOGIC: No focal neurological deficits. CN II-XII grossly intact PSYCHIATRIC: Cooperative. 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 Daughter No problems noted. Social History Household Members: Family Housing: Other Alcohol intake: never Patient Tobacco Use Status: Former Tobacco user Tobacco use type: Cigarette Years Smoked: 25 years e-Cigarette/Vaping Use: Currently Using service: No Current occupational status: disabled Cognitive needs: No Hearing needs: No Vision needs: Yes Physical Exam Vital Signs: Last Vital Signs Pulse 103 H 05/14/25 13:04 BP 142/76 H 05/14/25 13:04 Pulse Ox 96 05/14/25 13:04 Oxygen Delivery Method Room Air 05/14/25 13:04 BMI result Body Mass Index 36.3 Results AMB Hemoglobin A1c AMB Hemoglobin A1c 10.1 % Last Edit by RED aCldwell on 05/14/25 13:1 5 Assessment & Plan Assessment & Plan (1) Type 2 diabetes mellitus with hyperglycemia: Code(s): E11.65 - Type 2 diabetes mellitus with hyperglycemia Category: Medical Qualifiers: Diabetes mellitus nursing home insulin use: with local intermodal truck driver use Qualified Code(s): E11.65 - Type 2 diabetes mellitus with hyperglycemia; 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 A1C improved from 10.8 to 10.1 on trulicity. Will max dose. Patient did much better on mounjaro which is no longer covered For now continue current insulin doses. 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) use of insulin TSH reflex Free T4 2 Months E11.65 - Type 2 diabetes mellitus with hyperglycemia, Z79.4 - half-way (current) use of insulin Hemoglobin A1c 2 Months E11.65 - Type 2 diabetes mellitus with hyperglycemia, Z79.4 - half-way (current) use of insulin Microalbumin, Random (w Creat) 2 Months E11.65 - Type 2 diabetes mellitus with hyperglycemia, 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.4 - 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
[2025-05-14 13:04] VITALS: BP 142/76; PULSE 103; O2SAT 96; BMI 36.3
[2025-05-14 13:10] LABS: Glucose, Whole Blood 461 mg/dL (60-115)
--- OUTSIDE RECORDS SUMMARY | 2025-05-14 14:29 | XMS_ITS | Clinical Summary ---
Author Organization [facility] Address [address] [place] [address] Phone Care Team Providers Care House Mover Supervisor Name Role Phone Giuliano Villeda MD Primary Care Provider [phone] Medical History Medical History Date Comments Diabetes [...] Last Done Comments Breast Cancer Screening 1966 Colorectal Cancer Screening: Colonoscopy 1966 DTaP,Tdap,and Td Vaccines (1 - Tdap) 1985 Hepatitis B Vaccines (1 of 3 - 19+ 3-dose series) 1985 Pneumococcal Vaccine: 50+ Ye ars (1 of 2 - PCV) 1985 Cervical Cancer Screening: P ap Smear 10/25/1987 Zoster Vaccines (1 of 2) 2016 HIV Screening 06/07/2024 Hepatitis C Screening 06/07/2024 Social Influencers of Health Screening 06/07/2024 Depression Screening 08/13/2024 COVID-19 Vaccine (1 - 2023-2 5 season) 2025 Influenza Vaccine (#1) 2025 RSV Immunization Adult Patie nts (1 - 1-dose 75+ series) 2041 HIB Vaccines Aged Out No longer eligi [...] patient's age to complete this topic Insurance PLAN Care Teams House Mover Supervisor Relationship Specialty Start Date End Date Giuliano Villeda MD [address] [place] [address] PCP - General Internal Medicine 06/03/15
--- OUTSIDE RECORDS SUMMARY | 2025-05-14 14:29 | XMS_ITS | Clinical Summary ---
Author Organization [facility] Address [address] [address] Care Team Providers Care Law Researcher Name Role Phone Cal Aguillon MD Primary Care Provider [phone] Allergies No known active allergies Medications Aspirin [...] Diagnosed Date Resolved Date Insomnia 11/27/2023 11/28/2023 Encounters Date Type Department Care Team Description 05/05/2025 Refill [facility] [address] [place] [address] Micheal Cali MD from Last 3 Months Immunizations Immunization Administration Dates Next Due Influenza, [...] 05/18/2022 Influenza Vaccine (#1) 2025 06/15/2007 Insurance Care Teams Law Researcher Relationship Specialty Start Date End Date Cal Aguillon MD [address] [place] [id number] PCP - General Internal Medicine 05/17/22
--- OUTSIDE RECORDS SUMMARY | 2025-05-14 14:29 | XMS_ITS | Encounter Summary ---
Author Organization [facility] Address [address] [facility] [address] [place] [address] Phone Care Team Providers Care Trimming Machine Set Up Operator Name Role Phone Cal Aguillon MD Primary Care Provider [phone] Reason for Visit * Reason Comments Med Refill Encounter Details Date Type Department Care Team ([facility] st Contact Info) Description 05/05/2025 Refill [facility] [address] [facility] [address] [place] [phone] Micheal Cali MD [address] [facility] [address] [place] [phone] Social History Tobacco Use Types Packs/Day Years Used Date Smoking Tobacco: Former Cigarettes 2020 Smokeless Tobacco: Never Comments Unknown Sex and Gender Information Value Date Recorded Sex Assigned at Not on file Legal Sex Female 2:51 PM EDT Gender Identity Not on file Sexual Orientation Not on file documented as of this encounter Plan of Treatment Not on file documented as of this encounter Visit Diagnoses Not on filedocumented in this encounter Care Teams Trimming Machine Set Up Operator Relationship Specialty Start Date End Date Cal Aguillon MD [address] [place] [address] PCP - General Internal Medicine 05/17/22 documented as of this encounter
== END 2025-05-14 13:26 | disposition home or self-care (01) ==
LOC: HO.ENCR 13:01
PROVIDERS: PCP Internal Medicine; Visit Provider Internal Medicine
DX: E11.65 Type 2 diabetes mellitus with hyperglycemia (principal); Z79.4 Long term (current) use of insulin

== ENCOUNTER → 2025-05-14 13:00 | Outpatient (BNVA) | payer OTHER, SELFPAY | PROVIDERS: PCP Internal Medicine; Visit Provider Internal Medicine | DX: E11.65 Type 2 diabetes mellitus with hyperglycemia (principal); Z79.4 Long term (current) use of insulin | CPT/HCPCS: 82947; 83036; 99212 ==

== ENCOUNTER 2025-07-08 11:20 | Outpatient (AMB) | payer OTHER, SELFPAY ==
--- NOTE | 2025-07-08 11:21 | AM.OFFWIN_ITS ---
Intake Vital Signs 07/08/25 11:26 07/08/25 11:45 Height 5 ft 4 in Weight 209 lb BMI 35.9 BP 217/95 H 205/67 H Blood Pressure Location Rt brachial Rt brachial Position Sitting Sitting Pulse 98 Pulse Source Pulse Oximeter Temp 98 F Temp Source Oral Pulse Oximetry (%) 97 Oxygen Delivery Method Room Air Intake Visit Reasons: EP - ? UTI Intake Note: EP complains of urgency, frequency and change in color of the urea (cloudy) for a week time. Patient Tobacco Use Status: Former Tobacco user Allergies metformin Adverse Reaction (Intermediate, Verified 07/08/25 11:34) Abdominal Pain Do you need a note to return to daycare/school/sports/work: No HPI HPI Comments History of Present Illness Details History - The patient is a 59 year old individua l presenting with symptoms of a urinary tract infection, specifically urgency and cloudy urine. - The patient denies pain with urination , blood in her urine, and fevers. - The patient has a history of chronic b ack pain, but reports no new or worsening back pain with the current symptoms. - The patient has a history of hypertens ion and ran out of metoprolol, for which the patient has no refills, but did take losartan today. - The patient is diabetic and takes piog litazone. - The patient has a history of lymphedem a and uses compression devices on the legs. - Furosemide is prescribed as needed for leg swelling, which the patient has not been taking as there has been no recent perceived swelling. - The patient takes omeprazole on an as- needed basis. Review of Systems - Genitourinary: Reports urinary urgency and cloudy urine. - Denies dysuria or hematuria. - Musculoskeletal: Reports chronic back pain; denies any acute changes. - Constitutional: Denies fevers. - Extremities: Denies recent swelling in the legs. All systems reviewed and are unremarkable except as noted in HPI Physical Exam General: Cooperative, healthy appearing, comfortable, no acute distress and well developed Orientation: Patient oriented x3 Limitations: No limitations Head: Normal to inspection Ears: Hearing grossly normal bilaterally Face and sinus: Normal facial exam Neck: Normal visual inspection and Yes full ROM Respiratory: Normal respiratory effort and able to speak in complete sentences. Skin: No rashes or lesions noted Neuro: Patient oriented x3 Extremities: trace pitting edema bilateral LE PFSH Medical History Hypothyroidism Vitamin D deficiency Hyperlipidemia LDL goal <100 Type 2 diabetes mellitus with hyperglycemia Uncontrolled diabetes mellitus Methadone dependence long-term (current) use of insulin Chronic GERD Lipid disorder Hypertension, essential Surgical History History of cardiac ablation for atrial fibrillation Hx of mammogram Hx of cholecystectomy History of elbow surgery Family History Father Diabetes Mother Diabetes Brother Diabetes Brother No problems noted. Daughter No problems noted. Social History Household Members: Family Housing: Other Alcohol intake: never Patient Tobacco Use Status: Former Tobacco user Tobacco use type: Cigarette Years Smoked: 25 years e-Cigarette/Vaping Use: Currently Using service: No Current occupational status: disabled Cognitive needs: No Hearing needs: No Vision needs: Yes Review of Systems Const All systems reviewed & are unremarkable except as noted in HPI and below Physical Exam Vital Signs: Last Vital Signs Temp 98 F 07/08/25 11:26 Pulse 98 07/08/25 11:26 BP 205/67 H 07/08/25 11:45 Pulse Ox 97 07/08/25 11:26 Oxygen Delivery Method Room Air 07/08/25 11:26 BMI result Body Mass Index 35.9 Results AMB Urinalysis, Automated UA Leukoctes 70 Vanessa/uL Last Edit by Rosales Parker MA on 07/08/25 11:55 1+ Rosales Parker 07/08/25 11:55 UA Nitrite Negative Last Edit by Rosales Parker MA on 07/08/25 11:55 UA Urobilinogen 0.2 mg/dL Last Edit by Rosales Parker MA on 07/08/25 11:55 UA Protein 0 mg/dL Last Edit by Rosales Parker MA on 07/08/25 11:55 UA pH 6.0 Last Edit by Rosales Parker MA on 07/08/25 11:55 UA Blood 10 Conrad/uL Last Edit by Rosales Parker MA on 07/08/25 11:55 Trace Rosales Parker 07/08/25 11:55 UA Specific [place] 1.015 Last Edit by Rosales Parker MA on 07/08/25 11:5 5 UA Ketone Negative Last Edit by Rosales Parker MA on 07/08/25 11:55 UA Bilirubin 0 mg/dL Last Edit by Rosales Parker MA on 07/08/25 11:55 UA Glucose 1000 mg/dL Last Edit by Rosales Parker MA on 07/08/25 11:55 3+ Rosales Parker 07/08/25 11:55 Assessment & Plan Assessment & Plan (1) UTI (urinary tract infection): Code(s): N39.0 - Urinary tract infection, site not specified Qualifiers: Hematuria presence: with hematuria Urinary tract infection type: acute cystitis Qualified Code(s): N30.01 - Acute cystitis with hematuria Plan: Plan - A urinalysis showed leukocytes, trace hematuria, and glycosuria, likely from pioglitazone. - For a presumed urinary tract infection, a prescription for Cefuroxime to be taken every 12 hours for five days was sent to the patient's pharmacy. - A urine culture was sent for analysis, and the patient will be contacted to stop the antibiotic if the results are negative. - The patient was advised not to take omeprazole while on the antibiotic regimen. (2) Hypertension, essential: Code(s): I10 - Essential (primary) hypertension Plan: - A 90-day refill for metoprolol was sent to the pharmacy to manage hypertension. - The patient was educated on the risk of stroke associated with severely elevated blood pressure and advised to resume taking metoprolol today. - It was recommended that the patient take furosemide for a couple of days to help lower blood pressure as she does have some trace edema in her legs. - Monitor blood pressure at home to ensure it comes down after re-starting her metoprolol and furosemide. Follow up with PCP if it does not. - All prescriptions were sent to [facility] on [facility] in [place]. Patient was informed and verbally consented to the use of an ambient scribe for clinic note documentation during this visit. Orders: Orders Urine Culture Today N39.0 - Urinary tract infection, site not specified AMB Urinalysis Automated Today Z13.9 - Encounter for screening, unspecified Medications: New cefuroxime axetil 500 mg PO Q12H 10 tabs 0RF Changed From metoprolol succinate ER 100 mg PO DAILY To metoprolol succinate ER 100 mg PO DAILY 90 tabs 0RF 90 days Discontinued omeprazole Discontinued Reason: Patient no longer taking 40 mg PO DAILY 90 caps 0RF Coding Level of Care Code Est Pt Level 4 (00279) Diagnoses Acute cystitis with hematuria N30.01 Hematuria presence: with hematuria Urinary tract infection type: acute cystitis Hypertension, essential I10
[2025-07-08 11:26] VITALS: BP 217/95; PULSE 98; TEMP 36.6; O2SAT 97; BMI 35.9
[2025-07-08 11:45] VITALS: BP 205/67
--- OUTSIDE RECORDS SUMMARY | 2025-07-08 14:11 | XMS_ITS | Clinical Summary ---
Author Organization [facility] Address [address] [place] [address] Phone Care Team Providers Care Senior Hardware Engineer Name Role Phone Giuliano Villeda MD Primary Care Provider [phone] Allergies No known active allergies Medications No known medications Active Problems No known active problems Encounters Date Type Department Care Team Description 05/15/2025 12:40 PM EDT - 05/15/2025 1:28 PM EDT Emergency [facility] Emergency [address] [place] [address] Sprain of left wrist, unspecified location, initial encounter (Primary Dx) Discharge Disposition: Home or Self Care from Last 3 Months Medical History Medical History Date Comments Diabetes mellitus type 2, co ntrolled, with complications (CMS/HCC V24, CMS/HCC V28) DX:Diabetes mellitus type 2, controlled, with complications ([facility]) Essential hypertension DX:Essent ial hypertension Esophageal reflux [...] Sexual Orientation Not on file Obstetrics History Last Filed Vital Signs Vital Sign Reading Time Taken Comments Blood Pressure 149/62 05/15/2025 1:27 PM EDT Pulse 85 05/15/2025 1:27 PM EDT Temperature 37.1 C (98.8 F) 05/15/2025 12:36 PM EDT Respiratory Rate 16 05/15/2025 12:36 PM EDT Oxygen Saturation 95% 05/15/2025 12:36 PM EDT Inhaled Oxygen Concentration - - Weight 95.7 kg (211 lb) 05/15/2025 12:36 PM EDT Height 162.6 cm (5' 4 ) 05/15/2025 12:36 PM EDT Body Mass Index 36.22 05/15/2025 12:36 PM EDT Plan of Treatment Health Maintenance Due Date Last Done Comments Breast Cancer Screening 1966 Colorectal Cancer Screening: Colonoscopy 1966 Diabetes: Annual GFR (Glomerular Filtration Rate) 1966 Diabetes: Annual Foot Exam 1976 Diabetes: Annual Retina Eye Exam 1976 DTaP,Tdap,and Td Vaccines (1 - Tdap) 1985 Hepatitis B Vaccines (1 of 3 - 19+ 3-dose series) 1985 Pneumococcal Vaccine: 50+ Years (1 of 2 - PCV) 1985 Cervical Cancer Screening: P ap Smear 10/25/1987 RSV Immunization Adult Patients (1 - Risk 50-74 years 1-dose series) 2016 Zoster Vaccines (1 of 2) 2016 Cholesterol Screening (Lipid Panel) 06/07/2024 HIV Screening 06/07/2024 Hepatitis C Screening 06/07/2024 Social Influencers of Health Screening 06/07/2024 Depression Screening 08/13/2024 COVID-19 Vaccine (1 - 2024-2 6 season) 2025 Influenza Vaccine (#1) 2025 0, 06/15/2007 Diabetes: Annual Urine Albumin-Creatinine Ratio (uACR) 05/15/2025 Diabetes: Blood Sugar Contro l Test (HGBA1C) 05/15/2025 Hypertension/CHF/CAD Annual BMP Blood Test 05/15/2025 HIB Vaccines Aged Out No longer eligi [...] to complete this topic RSV Immunization Patients Under 20 months Aged Out No longer eligible b ased on patient's age to complete this topic Varicella Vaccines Aged Out No longer eligible based on patient's age to complete this topic Procedures Procedure Name Priority Date/Time Associated Diagnosis Comments XR HAND 3+ VIEWS LEFT STAT 05/15/2025 12:52 PM EDT XR WRIST 3+ VIEWS LEFT STAT 05/15/2025 12:52 PM EDT from Last 3 Months Results * XR Hand 3+ Views Left (05/15/2025 12:52 PM EDT) Anatomical Region Laterality Modality Upper Extremities, Hand Left [facility] 05/15/2025 1:12 PM EDT Impressions 05/15/2025 1:12 PM EDT FINDINGS/IMPRESSION: No acute fracture. Normal alignment. -------- FINAL REPORT -------- Dictated By: Gema Whitehead Dictated Date: 05/15/2025 13:12 ET Assigned Physician: Gema Whitehead Reviewed and Electronically Signed By: Gema Whitehead Signed Date: 05/15/2025 13:12 ET Workstation ID: [id number] Transcribed By: Self Edit Transcribed Date: 05/15/2025 13:12 ET Narrative 05/15/2025 1:12 PM EDT XR HAND 3+ VIEWS LEFT INDICATION: acute pain TECHNIQUE: XR HAND 3+ VIEWS LEFT COMPARISON: No priors available. Procedure Note Gema Whitehead MD - 05/15/2025 XR HAND 3+ VIEWS LEFT INDICATION: acute pain TECHNIQUE: XR HAND 3+ VIEWS LEFT COMPARISON: No priors available. IMPRESSION: FINDINGS/IMPRESSION: No acute fracture. Normal alignment. -------- FINAL REPORT -------- Dictated By: Gema Whitehead Dictated Date: 05/15/2025 13:12 ET Assigned Physician: Gema Whitehead Reviewed and Electronically Signed By: Gema Whitehead Signed Date: 05/15/2025 13:12 ET Workstation ID: [id number] Transcribed By: Self Edit Transcribed Date: 05/15/2025 13:12 ET José Miguel Adams MD IMG XR PROCEDURES Final Result * XR Wrist 3+ Views Left (05/15/2025 12:52 PM EDT) Anatomical Region Laterality Modality Upper Extremities, Wrist Left Radiogr [facility]ic Imaging 05/15/2025 1:10 PM EDT Impressions 05/15/2025 1:11 PM EDT FINDINGS/IMPRESSION: No visible fracture. Normal alignment. -------- FINAL REPORT -------- Dictated By: Gema Whitehead Dictated Date: 05/15/2025 13:10 ET Assigned Physician: Gema Whitehead Reviewed and Electronically Signed By: Gema Whitehead Signed Date: 05/15/2025 13:11 ET Workstation ID: [id number] Transcribed By: Self Edit Transcribed Date: 05/15/2025 13:10 ET Narrative 05/15/2025 1:11 PM EDT XR WRIST 3+ VIEWS LEFT INDICATION: acute pain TECHNIQUE: XR WRIST 3+ VIEWS LEFT COMPARISON: No priors available. Procedure Note Gema Whitehead MD - 05/15/2025 XR WRIST 3+ VIEWS LEFT INDICATION: acute pain TECHNIQUE: XR WRIST 3+ VIEWS LEFT COMPARISON: No priors available. IMPRESSION: FINDINGS/IMPRESSION: No visible fracture. Normal alignment. -------- FINAL REPORT -------- Dictated By: Gema Whitehead Dictated Date: 05/15/2025 13:10 ET Assigned Physician: Gema Whitehead Reviewed and Electronically Signed By: Gema Whitehead Signed Date: 05/15/2025 13:11 ET Workstation ID: [id number] Transcribed By: Self Edit Transcribed Date: 05/15/2025 13:10 ET José Miguel Adams MD IMG XR PROCEDURES Final Result from Last 3 Months Insurance [facility] Care Teams Senior Hardware Engineer Relationship Specialty Start Date End Date Giuliano Villeda MD [address] [place] [id number] PCP - General Internal Medicine 06/03/15
--- OUTSIDE RECORDS SUMMARY | 2025-07-08 14:11 | XMS_ITS | Clinical Summary ---
Author Organization [facility] Facility Address [address] [address] Care Team Providers Care Dietitian Research Name Role Phone Cal Aguillon MD Primary Care Provider [phone] Allergies No known active allergies Medications Aspirin [...] 08/22/2022 Dyslipidemia 08/22/2022 Chronic pain syndrome 08/22/2022 shelter use of methadone for pain management 0 08/22/2022 Resolved Problems Problem Noted Date Diagnosed Date Resolved Date Insomnia 11/27/2023 11/28/2023 Encounters Date Type Department Care Team Description 05/05/2025 Refill [facility] [address] [place] [address] Micheal Cali MD from Last 3 Months Immunizations Immunization Administration Dates Next Due Influenza, Unspecified 06/15/2007 Family History Medical History Relation Comments Diabetes Brother Diabetes Father Diabetes Mother Relation Status Comments Brother Father Mother Social History Tobacco Use Types Packs/Day Years Used Date Smoking Tobacco: Former Cigarettes 2020 Smokeless Tobacco: Never Tobacco Cessation:Counseling Given: [...] 05/18/2022 Influenza Vaccine (#1) 2025 06/15/2007 Insurance Member Subscriber Plan / Payer (Ef fective 2022-Present) Name:Nora Jasmine Relation to Subscriber:Self Name:Nora Jasmine Payer ID:Not on file Group ID:[id number] Type:Not on file Address: [place] [id number] Care Teams Dietitian Research Relationship Specialty Start Date End Date Cla Aguillon [place] [address] PCP - General Internal Medicine 05/17/22
== END 2025-07-08 11:56 | disposition home or self-care (01) ==
PROVIDERS: PCP Internal Medicine; Visit Provider Physician Assistant
DX: N30.01 Acute cystitis with hematuria (principal); I10 Essential (primary) hypertension

== ENCOUNTER 2025-07-08 11:20 | Outpatient (REF) | payer OTHER, SELFPAY | END 2025-07-08 11:21 | disposition home or self-care (01) | LOC: HO.LAB 11:20 | PROVIDERS: PCP Internal Medicine; Visit Provider Physician Assistant | DX: N30.01 Acute cystitis with hematuria (principal); I10 Essential (primary) hypertension; Z79.899 Other long term (current) drug therapy; Z87.891 Personal history of nicotine dependence | CPT/HCPCS: 87086; 99212 ==